=== PATIENT | male | born 1935 | race Caucasian/White ===

== ENCOUNTER 2018-06-05 09:47 | Day surgery (SDC) | payer OTHER ==
--- OUTSIDE RECORDS SUMMARY | 2018-06-05 09:54 | XMS REPORT | Summary of Care ---
:1935 Author Organization [facility] Outpatient Imaging [place] Address [address] [place] [address]- Encounter HQ Demario_micah(FIN) [id number] Date(s): 04/13/16 - 04/13/16 [facility] Outpatient Imaging [place] [address]- Discharge Disposition: Home or Self Care Attending Physician: Gilles Valdes MD Vital Signs No data available for this section Problem List Condition Effective Dates Status Health Status Informant AAA - Abdominal aortic 04/28/11 Active aneurysm(Confirmed) Abdominal aortic aneurysm1 02/24/06 Active Abdominal bloating2, 3 02/06/15 Active Acute bronchitis4, 5, 6 06/14/12 Resolved Acute conjunctivitis7, 8 06/14/14 Active Anticoagulant therapy9 08/08/13 Active Anxiety(Confirmed) Active Atrial tdqeeuuwcusv36, 11, 12, 13 03/27/12 Active CABG - Coronary artery bypass 04/28/11 Active graft(Confirmed) CAD - Coronary artery 04/28/11 Active disease(Confirmed) Cardiac catheterization stent x1 Active circumflex(Confirmed) Chest pain14, 15 10/07/14 Active Congestive heart , 17, 18, 09/21/12 Active 19 Wfkyxneju48, 21 12/05/14 Active Coronary obimdkcpmpuesjrq50, 23, 24, Active 25, 26, 27, 28 Disorder of eye29, 30, 31 06/14/14 Active Uvejper95, 33 10/07/14 Active Electrocardiogram 05/03/13 Active Elevated levels of transaminase & 02/06/15 Active lactic acid dtpiigqpupnsd97, 36 Explanation of expected sequence of Active events(Confirmed) Fever37, 38 03/01/13 Resolved Heart , 40, 41, 42 05/03/13 Active Heart valve oijjpxji07, 44, 45, 46 Active History of polyp of colon47, 48, 49 12/11/02 Active Hmkflpkonuyryc64, 51, 52 Active Zoliahcqazraac36 Active Long-term drug telyqfp51 Active Mitral valve acvufndrljydk37 10/29/13 Active Pain in yoveft61 06/14/12 Resolved Patient with cardiac rbmhoiaom14, 04/04/12 Active 58, 59 Peripheral vascular alspynp44 Active Repair of aortic valve(Confirmed) 04/28/11 Active Sick sinus jrhvzihl92 Active Upper respiratory ojdowmryw09 10/02/12 Resolved 1Data migrated from [employer] on 03/22/15.2Data migrated from [employer] on 03/22/15.3Data migrated from [employer] on 03/05/15.4Data migrated from [employer] on 02/15/15.5Data migrated from [employer] on 02/05/15.6Data migrated from [employer] on 12/31/14.7Data migrated from [employer] on .8Data migrated from [employer] on 12/31/14.9Data migrated from [employer] on 12/28/14.10Data migrated from [employer] on 03/22/15.11Data migrated from [employer] on 02/05/15.12Data migrated from [employer] on .13Data migrated from [employer] on 12/28/14.14Data migrated from [employer] on 02/05/15.15Data migrated from [employer] on 12/31/14.16Data migrated from [employer] on 03/22/15.17Data migrated from [employer] on 02/05.18Data migrated from [employer] on 12/31/14.19Data migrated from [employer] on 12/28/14.20Data migrated from [employer] on 02/05/15.21Data migrated from [employer] on 12/31/14.22Data migrated from [employer] on 03/22.23Data migrated from [employer] on 03/22/15.24Data migrated from [employer] on 02/05/15.25Data migrated from [employer] on 02/05/15.26Data migrated from [employer] on 12/31/14.27Data migrated from [employer] on .28Data migrated from [employer] on 12/28/14.29Data migrated from [employer] on 02/05/15.30Data migrated from [employer] on 12/31/14.31Data migrated from [employer] on 12/28/14.32Data migrated from [employer] on 02/05.33Data migrated from [employer] on 12/31/14.34Data migrated from [employer] on 12/28/14.35Data migrated from [employer] on 03/22/15.36Data migrated from [employer] on 03/05/15.37Data migrated from [employer] on 02/14.38Data migrated from [employer] on 02/14/15.39Data migrated from [employer] on 03/22/15.40Data migrated from [employer] on 02/05/15.41Data migrated from [employer] on 12/31/14.42Data migrated from [employer] on 12/28.43Data migrated from [employer] on 03/22/15.44Data migrated from [employer] on 02/05/15.45Data migrated from [employer] on 12/31/14.46Data migrated from [employer] on 12/28/14.47Data migrated from [employer] on .48Data migrated from [employer] on 02/05/15.49Data migrated from [employer] on 12/31/14.50Data migrated from [employer] on 02/05/15.51Data migrated from [employer] on 12/31/14.52Data migrated from [employer] on 12/28.53Data migrated from [employer] on 12/28/14.54Data migrated from [employer] on 12/28/14.55Data migrated from [employer] on 12/28/14.56Data migrated from [employer] on 02/15/15.57Data migrated from [employer] on 8/ 22/15.58Data migrated from [employer] on 02/05/15.59Data migrated from [employer] on 12/31/14.60Data migrated from [employer] on 12/28/14.61Data migrated from [employer] on 12/28/14.62Data migrated from [employer] on . Allergies, Adverse Reactions, Alerts Substance Reaction Severity Status penicillin Active penicillins1 Rash, NOS Active sulfa drugs2 Rash, NOS Active 1Data migrated from [employer] on 02/27/15. Originally documented as PENICILLIN. RASH AND BIG GOODS2Vkxz migrated from [employer] on 02/27/15. Originally documented as SULFA. rash Medications No data available for this section Results No data available for this section Immunizations Given and Recorded Vaccine Date Status Refusal Reason diphtheria/pertussis, acel/tetanus adult1 03/28/07 Given Hx influenza vaccine-unspecified2 04/21/12 Given influenza virus vaccine, inactivated 04/29/11 Given 1Result Comment: tdap. Migrated from OBS ; Data migrated from [employer] on 09/02/2015.2Result Comment: fluzone. Migrated from OBS ; Data migrated from [employer] on 09/02/2015. Procedures Procedure Date Related Diagnosis Body Site Cardiac pacemaker procedure 03/30/12 Stent placement 12/15/11 Aortic aneurysm repair Aortic valve replacement and aortoplasty CABG - Coronary artery bypass graft Catheterization of left heart Circumcision Repair of infrarenal abdominal aortic aneurysm with insertion of endovascular stent Social History Social History Type Response Substance Abuse Use: None. Exercise Exercise type: Walking.1, 2, 3 Employment/School Status: Retired. Alcohol Current, Type Beer. Frequency: 1-2 times per week. Smoking Status Former smoker; Type: Cigarettes; Started at age: 16.0; Stopped at age: 29; Exposure to Tobacco Smoke None; Cigarette Smoking Last 365 Days No; Reg Smoking Cessation Counseling No 1Rides lawnmower.2Has a garden and mowing.3Very active, currently building fences. Assessment and Plan No data available for this section
--- OUTSIDE RECORDS SUMMARY | 2018-06-05 09:54 | XMS REPORT | Summary of Care ---
:1935 Author Organization [facility] Outpatient Imaging [place] Address [address] [place] [address]- Encounter HQ Jacquelin(FIN) [phone] Date(s): 07/02/15 - 07/02/15 [facility] Outpatient Imaging [place] [address]- [facility] Discharge Disposition: Home Attending Physician: Gilles Valdes MD Vital Signs No data available for this section Problem List Condition Effective Dates Status Health Status Informant AAA - Abdominal aortic 04/28/11 Active aneurysm(Confirmed) Abdominal aortic aneurysm1 02/24/06 Active Abdominal bloating2, 3 02/06/15 Active Acute bronchitis4, 5, 6 06/14/12 Resolved Acute conjunctivitis7, 8 06/14/14 Active Anticoagulant therapy9 08/08/13 Active Anxiety(Confirmed) Active Atrial frputucvzxun18, 11, 12, 13 03/27/12 Active CABG - Coronary artery bypass 04/28/11 Active graft(Confirmed) CAD - Coronary artery 04/28/11 Active disease(Confirmed) Cardiac catheterization stent x1 Active circumflex(Confirmed) Chest pain14, 15 10/07/14 Active Congestive heart pbxzaqf70, 17, 18, 09/21/12 Active 19 Tftozcwvx37, 21 12/05/14 Active Coronary qcnfujijbdxeycfo19, 23, 24, Active 25, 26, 27, 28 Disorder of eye29, 30, 31 06/14/14 Active Vcrwtnj89, 33 10/07/14 Active Electrocardiogram lphqbvbi67 05/03/13 Active Elevated levels of transaminase & 02/06/15 Active lactic acid rhbkwwfewqgcz70, 36 Explanation of expected sequence of Active events(Confirmed) Fever37, 38 03/01/13 Resolved Heart bfjiad64, 40, 41, 42 05/03/13 Active Heart valve hxwplebi35, 44, 45, 46 Active History of polyp of colon47, 48, 49 12/11/02 Active Ggbmvukbczrote83, 51, 52 Active Nfzdjozkxvkakw41 Active Long-term drug hnjlkor68 Active Mitral valve ixjtkndmkspep68 10/29/13 Active Pain in 06/14/12 Resolved Patient with cardiac ovhnpksos36, 04/04/12 Active 58, 59 Peripheral vascular ixgzgmc08 Active Repair of aortic valve(Confirmed) 04/28/11 Active Sick sinus oerhwknx54 Active Upper respiratory riksricar28 10/02/12 Resolved 1Data migrated from [employer] [...] on 02/15/15.57Data migrated from [employer] on .58Data migrated from [employer] on 02/05/15.59Data migrated from [employer] on 12/31/14.60Data migrated from [employer] on 12/28/14.61Data migrated from [employer] on 12/28/14.62Data migrated from [employer] on . Allergies, Adverse Reactions, Alerts Substance Reaction Severity Status penicillin Active penicillins1 Active sulfa drugs2 Active 1Data migrated from [employer] on 02/27/15. Originally documented as PENICILLIN. RASH AND BIG SFFME7Lmja migrated from [employer] on 02/27/15. Originally documented as SULFA. rash Medications No data available for this section Results No data available for this section Immunizations Vaccine Date Refusal Reason influenza virus vaccine, inactivated 04/29/11 Procedures Procedure Date Related Diagnosis Body Site Aortic aneurysm repair Aortic valve replacement and aortoplasty CABG - Coronary artery bypass graft Cardiac pacemaker procedure Catheterization of left heart Circumcision Repair of infrarenal abdominal aortic aneurysm with insertion of endovascular stent Stent placement Social History Social History Type Response Substance Abuse Use: None. Alcohol Current, Type Beer. Frequency: Daily. Smoking Status Former smoker; Exposure to Tobacco Smoke None; Cigarette Smoking Last 365 Days No; Reg Smoking Cessation Counseling No Assessment and Plan No data available for this section
--- OUTSIDE RECORDS SUMMARY | 2018-06-05 09:54 | XMS REPORT | Summary of Care ---
:1935 Author Organization [facility] Address [address] [place] [address]- Encounter HQ Jacquelin(FIN) [id number] Date(s): 09/11/15 - 09/11/[address] [address]- [employer] Discharge Disposition: Home Attending Physician: Justin Lopez MD Referring Physician: Dillon Watson MD Vital Signs Most recent to oldest [Reference Range]: 1 Height 172.72 cm (09/11/15 11:39 AM) Blood Pressure [90-140/60-90 mmHg] 113/78 mmHg (09/11/15 11:39 AM) Respiratory Rate [14-20 BRMIN] 78 BRMIN *HI* (09/11/15 11:39 AM) Weight 75 kg (09/11/15 11:39 AM) Body Mass Index 25.14 m2 (09/11/15 11:39 AM) Problem List Condition Effective Dates Status Health Status Informant AAA - Abdominal aortic 04/28/11 Active aneurysm(Confirmed) Abdominal aortic aneurysm1 02/24/06 Active Abdominal bloating2, 3 02/06/15 Active Acute bronchitis4, 5, 6 06/14/12 Resolved Acute conjunctivitis7, 8 06/14/14 Active Anticoagulant therapy9 08/08/13 Active Anxiety(Confirmed) Active Atrial bydyjzjgdnoi72, 11, 12, 13 03/27/12 Active CABG - Coronary artery bypass 04/28/11 Active graft(Confirmed) CAD - Coronary artery 04/28/11 Active disease(Confirmed) Cardiac catheterization stent x1 Active circumflex(Confirmed) Chest pain14, 15 10/07/14 Active Congestive heart tcnizfs45, 17, 18, 09/21/12 Active 19 Xjjcflxad42, 21 12/05/14 Active Coronary zskuwtdgxiqvopqe36, 23, 24, Active 25, 26, 27, 28 Disorder of eye29, 30, 31 06/14/14 Active Qibxxid68, 33 10/07/14 Active Electrocardiogram naiqxtpa57 05/03/13 Active Elevated levels of transaminase & 02/06/15 Active lactic acid xzaomkqokryjt73, 36 Explanation of expected sequence of Active events(Confirmed) Fever37, 38 03/01/13 Resolved Heart otuodg79, 40, 41, 42 05/03/13 Active Heart valve xnhyybio31, 44, 45, 46 Active History of polyp of colon47, 48, 49 12/11/02 Active Pcqzghvahtixuv14, 51, 52 Active Aunnofzoclttwe28 Active Long-term drug tdmfuou65 Active Mitral valve cjhpkrjnxmxzu73 10/29/13 Active Pain in 06/14/12 Resolved Patient with cardiac slwdytkdg78, 04/04/12 Active 58, 59 Peripheral vascular euakqnx22 Active Repair of aortic valve(Confirmed) 04/28/11 Active Sick sinus kwzqukry72 Active Upper respiratory fnsreqfes44 10/02/12 Resolved 1Data migrated from [employer] [...] Originally documented as PENICILLIN. RASH AND BIG EFGCH0Eiak migrated from [employer] on 02/27/15. Originally documented as SULFA. rash Medications No Known Medications Results No data available for this section Immunizations Vaccine Date Refusal Reason diphtheria/pertussis, acel/tetanus adult1 03/28/07 Hx influenza vaccine-unspecified2 04/21/12 influenza virus vaccine, inactivated 04/29/11 1Result Comment: tdap. Migrated from OBS ; [...] Response Substance Abuse Use: None. Exercise Exercise frequency: Daily. Exercise type: Walking. Employment/School Status: Retired. Alcohol Current, Type Beer. Frequency: Daily. Smoking Status Former smoker; Exposure to Tobacco Smoke None; Cigarette Smoking Last 365 Days No; Reg Smoking Cessation Counseling No Assessment and Plan No data available for this section
--- OUTSIDE RECORDS SUMMARY | 2018-06-05 09:54 | XMS REPORT | Summary of Care ---
:1935 Author Organization [facility] Outpatient Imaging [place] Address [address] [place] [address]- Encounter HQ Demario_micah(FIN) [id number] Date(s): 05/13/16 - 05/13/16 [facility] Outpatient Imaging [place] [address]- Discharge Disposition: Home or Self Care Attending Physician: James Valdez MD Vital Signs No data available for this section Problem List Condition Effective Dates Status Health Status Informant AAA - Abdominal aortic 04/28/11 Active aneurysm(Confirmed) Abdominal aortic aneurysm1 02/24/06 Active Abdominal bloating2, 3 02/06/15 Active Acute bronchitis4, 5, 6 06/14/12 Resolved Acute conjunctivitis7, 8 06/14/14 Active Anticoagulant therapy9 08/08/13 Active Anxiety(Confirmed) Active Atrial ktnhysuhefdr86, 11, 12, 13 03/27/12 Active CABG - Coronary artery bypass 04/28/11 Active graft(Confirmed) CAD - Coronary artery 04/28/11 Active disease(Confirmed) Cardiac catheterization stent x1 Active circumflex(Confirmed) Chest pain14, 15 10/07/14 Active Congestive heart fihczsz52, 17, 18, 09/21/12 Active 19 Wougkgesm26, 21 12/05/14 Active Coronary nzpkugdshekcqycd29, 23, 24, Active 25, 26, 27, 28 Disorder of eye29, 30, 31 06/14/14 Active Lcecdeh28, 33 10/07/14 Active Electrocardiogram uymqfuxk27 05/03/13 Active Elevated levels of transaminase & 02/06/15 Active lactic acid , 36 Explanation of expected sequence of Active events(Confirmed) Fever37, 38 03/01/13 Resolved Heart ouwieg81, 40, 41, 42 05/03/13 Active Heart valve , 44, 45, 46 Active History of polyp of colon47, 48, 49 12/11/02 Active Kejjyukcuayibc78, 51, 52 Active Bgiuqbtzejmmbk82 Active Long-term drug grsqniv33 Active Mitral valve eqwugwuxtrxuo49 10/29/13 Active Pain in bhreyt45 06/14/12 Resolved Patient with cardiac regesjiuc58, 04/04/12 Active 58, 59 Peripheral vascular yxhaqar64 Active Repair of aortic valve(Confirmed) 04/28/11 Active Sick sinus alcejpnw40 Active Upper respiratory uvipsjdnw80 10/02/12 Resolved 1Data migrated from [employer] [...] Originally documented as PENICILLIN. RASH AND BIG [id number] migrated from [employer] on 02/27/15. Originally [...]
--- OUTSIDE RECORDS SUMMARY | 2018-06-05 09:54 | XMS REPORT | Continuity of Care Document ---
:1935 Author Organization Interface Problems Problem Status Onset Classification Date Comments Source Date Reported R94.5 - ABNORMAL Active [facility] RESULTS OF LIVER 016 [place] FUNC R [place] R93.8 - ABNORMAL Active [facility] FINDINGS ON 016 [facility] DIAGNOSTI I [place] PANCREATIC MASS Active [facility] CARE4 RECORDS 016 [facility] I71.4 - "ABDOMINAL Active [facility] AORTIC ANEURYSM, 015 [facility] WIT" Land Abdominal Active Problem 02/14/2018 Data bloating<sup>2, 015 migrated Medical 3</sup> from [employer], [facility] on 03/05/15. [facility] Elevated levels of Active Problem 02/14/2018 Data transaminase & 015 migrated Medical lactic acid from [employer], dehydrogenase<sup>35 [facility] , 36</sup> on 03/05/15. [facility] Contusion<sup>20, Active Problem 02/14/2018 Data 21</sup> 015 migrated Medical from [employer], [facility] on 12/31/14. [facility] Chest pain<sup>14, Active Problem 02/14/2018 Data 15</sup> 015 migrated Medical from [employer], [facility] on 12/31/14. [facility] Dyspnea<sup>32, Active Problem 02/14/2018 Data 33</sup> 015 migrated Medical from [employer], [facility] on 12/31/14. [facility] Acute Active Problem 02/14/2018 Data conjunctivitis<sup>7 014 migrated Medical , 8</sup> from [employer], [facility] on 12/31/14. [facility] Disorder of Active Problem 02/14/2018 Data eye<sup>29, 30, 014 migrated Medical 31</sup> from [employer], [facility] on 12/28/14. 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 [facility] Anticoagulant Active Problem 02/14/2018 Data therapy<sup>9</sup> 014 migrated Medical from [employer], [facility] on 12/28/14. [facility] Electrocardiogram Active Problem 02/14/2018 Data abnormal<sup>34</sup 013 migrated Medical > from [employer], [facility] on 12/28/14. [facility] Heart murmur<sup>39, Active Problem 02/14/2018 Data 40, 41, 42</sup> 013 migrated Medical from [employer], [facility] on 12/28/14. [facility] Fever<sup>37, Resolved Problem 02/14/2018 Data 38</sup> 013 migrated Medical from [employer], [facility] on 02/14/15. [facility] Upper respiratory Resolved Problem 02/14/2018 Data infection<sup>62</valverde 013 migrated Medical p> from [employer], [facility] on 02/15/15. [facility] Congestive heart Active Problem 02/14/2018 Data failure<sup>16, 17, 013 migrated Medical 18, 19</sup> from [employer], [facility] on 12/28/14. [facility] Acute Resolved Problem 02/14/2018 Data bronchitis<sup>4, 5, 012 migrated Medical 6</sup> from [employer], [facility] on 12/31/14. [facility] Pain in Resolved Problem 02/14/2018 Data throat<sup>56</sup> 012 migrated Medical from [employer], [facility] on 02/15/15. [place] Patient with cardiac Active Problem 02/14/2018 Data pacemaker<sup>57, 012 migrated Medical 58, 59</sup> from [employer], [facility] on 12/31/14. [place] Atrial Active Problem 02/14/2018 Data fibrillation<sup>10, 012 migrated Medical 11, 12, 13</sup> from [employer], [facility] on 12/28/14. 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 [facility] History of polyp of Active Problem 02/14/2018 Data colon<sup>47, 48, 003 migrated Medical 49</sup> from [employer], [facility] on 12/31/14. [facility] Anxiety Active Problem 02/14/2018 Medical Group, OPID [place] Cardiac Active Problem 02/14/2018 catheterization Medical stent x1 circumflex Group, OPID [place] Coronary Active Problem 02/14/2018 Data arteriosclerosis<sup migrated Medical >22, 23, 24, 25, 26, from [employer], 27, 28</sup> Centricity [facility] on 12/28/14. [place] Explanation of Active Problem 02/14/2018 expected sequence of Medical events Group, OPID [facility] Heart valve Active Problem 02/14/2018 Data disorder<sup>43, 44, migrated Medical 45, 46</sup> from Group, Centricity OPID on 12/28/14. [facility] Hyperlipidemia<sup>5 Active Problem 02/14/2018 Data 0, 51, 52</sup> migrated Medical from [facility], Centricity OP[facility] on 12/28/14. [facility] Hypothyroidism<sup>5 Active Problem 02/14/2018 Data 3</sup> migrated Medical from [facility], Centricity [facility] on 12/28/14. [facility] Long-term drug Active Problem 02/14/2018 Data therapy<sup>54</sup> migrated Medical from [facility], Centricity [facility] on 12/28/14. [facility] Peripheral vascular Active Problem 02/14/2018 Data disease<sup>60</sup> migrated Medical from [facility], Centricity [facility] on 12/28/14. [facility] Sick sinus Active Problem 02/14/2018 Data syndrome<sup>61</sup migrated Medical > from [facility], Centricity [facility] on 12/28/14. [facility] MEDICAL SERVICES NOT Active [facility] AVAILABLE IN [facility] Medications Medication Details Route Status Patient Ordering Order Source Instructions Provider Date warfarin 2 mg 2 mg=1 tab, No Longer oral tablet PO, Daily, Active 018 Medical TAKES 3 MG Group ON TUE-TUE-TUE AND 2 MG ON T-SUN., 0 Refill(s) Digoxin 0.125 MG 125 Active Oral Tablet microgram=1 018 Medical tab, PO, Group Daily, # 90 tab, 3 Refill(s), Pharmacy: [facility] Digoxin 0.125 MG See Active Oral Tablet Instruction 018 Medical s, TAKE ONE Group TABLET BY MOUTH ONCE DAILY, # 30 tab, 10 Refill(s), Pharmacy: [facility] Fluticasone 2 spray, Active propionate 0.05 NASAL, 018 Medical MG/ACTUAT Metered Daily, in Group Dose Nasal [place] each nostril, # 16 gm, 1 Refill(s), Pharmacy: [facility] spironolactone 25 See Inactive MH mg oral tablet Instruction 018 Medical s, TAKE ONE Group TABLET BY MOUTH ONCE DAILY, # 90 tab, 2 Refill(s), Pharmacy: [facility] Furosemide 40 MG 40 mg=1 Inactive Oral Tablet tab, PO, 018 Medical Daily, # 30 Group tab, 5 Refill(s), Pharmacy: [facility] pregabalin 200 MG 200 mg=1 Active Oral Capsule cap, PO, 018 Medical [Lyrica] Bedtime, # Group 30 cap, 1 Refill(s) Calcium Carbonate 1,000 mg, Active MH PO, Daily, 017 Medical 0 Refill(s) Group Vitamin D3 2000 2 TABS, PO, Active intl units oral Daily, 0 017 Medical tablet Refill(s) Group Allergies, Adverse Reactions, Alerts Substance Category Reaction Severity Reaction Status Date Comments Source type Reported sulfa Assertion Rash, NOS Drug Active Data drugs<sup>2< allergy 4 migrated Medical /sup> from [employer] on 02/27/15. Originally documented as SULFA. rash penicillins< Assertion Rash, NOS Drug Active Data sup>1</sup> allergy migrated Medical from [facility] on 02/27/15. Originally documented as PENICILLIN. RASH AND BIG KNOTS penicillin Assertion Drug Active allergy Medical Group Immunizations Immunization Date Site Status Last Comments Source Given Updated Hx influenza completed GE Result Medical vaccine-unspecif 2 Comment: Group ied<sup>1</sup> fluzone. Migrated from OBS ; Data migrated from [employer] on 09/02/2015. Hx influenza completed GE Result [facility] vaccine-unspecif 2 Comment: [place] ied<sup>2</sup> fluzone. Fatimah Migrated from [place] OBS ; Data Medical migrated from [facility] on 09/02/2015. influenza virus Right completed [facility] vaccine, 1 deltoid Group,MH inactivated OPID [place] diphtheria/pertu completed GE Result Medical ssis, 7 Comment: tdap. Group acel/tetanus Migrated from adult<sup>2</sup OBS ; Data > [facility] 09/02/2015. diphtheria/pertu completed GE Result [facility] ssis, 7 Comment: tdap. [place] acel/tetanus Migrated from [facility], adult<sup>1</sup OBS ; Data [place] > migrated from [facility] on 09/02/2015. Results Order Name Results Value Reference Date Interpretation Comments Source Range Ribs Ribs Patient Name: MARISOL MNCEAL. 12/19 - [facility] unilateral unilateral /2017 - [place] 3 views w 3 views w : 1935; Age: 82 years y/o; Male. PA chest DX PA chest DX MR: [id number]. Read by: Raj Aguayo MD Dictated Date/time: 12/19/17 13:47 Ordering Physician: Gilles Valdes MD. Electronically Signed by : Raj Aguayo MD 12/19/17 13:51 FINAL REPORT Left rib series with PA chest, 5 views. HISTORY: Fall with left chest/rib injury 2 weeks prior. COMPARISON: Chest x-ray 04/27/2016. FINDINGS: PA view of the chest and 4 views of left chest wall/ribs were obtained. Median sternotomy wires are intact. Dual-lead pacemaker noted overlying the left chest wall. Stable mild left basilar pleural parenchymal scarring noted. Minimal right basilar atelectasis versus pleural parenchymal scarring noted. No pneumothorax. Atherosclerotic calcification noted. Heart is top normal in size to minimally enlarged. No evidence of displaced fracture or destructive process involving the left ribs. IMPRESSION: 1. No acute disease in the chest. No displaced fracture or destructive process involving the left ribs. 2. Heart is top normal in size to minimally enlarged. SL: [id number] Liver US Liver US CLINICAL HISTORY: abd pain , nausea, abnormal liver functions 05/13 - [facility] - [place] AGE: 80 years [place] GENDER: Male Read by: Red Karimi MD Dictated Date/time: 05/13/16 10:51 Electronically Signed by: Red Karimi MD 05/13/16 11:55 FINAL REPORT TECHNIQUE: Grayscale and color Doppler imaging of the right upper quadrant was performed. Transverse and longitudinal images were submitted. COMPARISON: CT abdomen pelvis 04/13/2016 FINDINGS: Liver is normal in size and echotexture. Liver measures 10.5 cm in craniocaudal dimension. There is no evidence of focal hepatic lesion. No intrahepatic or extrahepatic biliary ductal dilatation is see n. Flow in the main portal vein is hepatopedal. There is normal triphasic flow in the hepatic veins. The hepatic artery is patent. The gallbladder is present. There is no evidence of cholelithiasis, gallbladder wall thickening or pericholecystic fluid. The CBD measures 6 millimeters in diameter. This is within normal limits for patient age. The right kidney measures 10.9 x 5.6 x 4.6 cm. Multiple simple and the medial consistencies in the right kidney which are not changed back to July 2015. The previously noted pancreatic body cystic lesion is not well-visualized on the current exam. Provided images of the proximal, mid and distal aorta show demonstrate postoperative changes from aortic endograft repair, partially visualized. Flow is seen within the aortic endograft. IMPRESSION: Patent hepatic vasculature. Unremarkable sonographic examination of the liver. Postoperative changes from endograft repair, partially visualized on this examination. The endograft appears patent. Chest 2 Chest 2 EXAM: Chest 2 views DX 04/27 - [facility] views DX views DX /2015 - [place] HISTORY: Dyspnea/Abd pain COMPARISON: 07/13/2006 Read by: Osorio Jordan MD Dictated Date/time: 04/27/16 15:13 Electronically Signed by: Osorio Jordan MD 04/27/16 15:14 FINAL REPORT IMPRESSION: There is significant enlargement of the cardiac silhouette with pacing leads present along with prior median sternotomy. The aorta is tortuous, probably ectatic with calcifications at the arch. Valvular repair also noted. There is no significant edema or effusion. The lungs are grossly clear. No pneumothorax. Mild discogenic degenerative changes are noted. Abdomen wo Abdomen wo CT abdomen without IV contrast, 04/13/201604/13 - [facility] IV contrast IV contrast /2015 - [place] [facility] [place] HISTORY: Pancreatic lesion. Compared to CT abdomen dated 07/02/2015. Read by: Jose A Lee MD Dictated Date/time: 04/13/16 14:53 Electronically Signed by: Jose A Lee MD 04/13/16 15:29 FINAL REPORT TECHNIQUE: 5 mm axial noncontrast images through the upper abdomen were obtained with sagittal and coronal reconstructions. Oral contrast was administered. DLP 464. FINDINGS: Images through the lung bases demonstrate minimal bibasilar atelectasis or mild fibrosis. Cardiomegaly with multichamber enlargement aortic valve prosthesis. Pacemaker electrodes. No evidence of liver mass or bile duct dilatation. No evidence of calcified gallstones. Mild gallbladder wall thickening. Normal spleen. Multiple bilateral benign renal cysts. No evidence of solid renal mass or hydronephrosis. Bifurcated aortic stent graft with no change in size of the excluded aneurysm sac. The mild dilatation of the ostium of the superior mesenteric artery is again noted. No evidence of aneurysm leakage. The previously described oval-shaped 17 x 11 mm cystic lesion in the body of the pancreas is again identified, unchanged since the prior exam. No other abnormality of the pancreas seen on noncontrast images. No dilated bowel loops. No evidence of ascites. Mild degenerative changes in the lumbar spine. No evidence of fracture or bone destruction. 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 Follow- up exam in one year recommended. If stable at that time, no follow-up required. Abdomen CTA Abdomen CTA STUDY: Abdomen CTA 07/02 [facility] [place] COMPARISON: CTA abdomen/pelvis dated 01/14/09 Read by: Zach Garrido MD Dictated Date/time: 07/02/15 12:20 Electronically Signed by: Zach Garrido MD 07/02/15 12:36 FINAL REPORT TECHNIQUE: Contiguous axial images were obtained from the lower thorax to the pubic symphysis prior to and after the administration of intravenous contrast. Coronal and sagittal MIP images as well as s urface rendered images were recreated and available for review. 3D reconstructions were also obtained. DLP: 459.57 mgy-cm. FINDINGS: VASCULAR: The patient is status post EVAR. There is mild hyperdense material noted within the aneurysm sac, which does not appear to be an endoleak but is chronic. The excluded aneurysm sac is decreased in size. 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 The bilateral single renal arteries are patent without significant stenoses. The celiac artery is patent. NON-VASCULAR: The heart size is enlarged, with coronary calcifications noted. The patient is status post aortic valve replacement, and ICD leads project in the right heart. The liver, gallbladder, spleen, adrenal glands, and kidneys are unremarkable. Bilateral simple cysts are noted in the kidneys. The pancreas demonstrates a 1.8 x 1 cm hypodensity within the mid body. The distal esophagus, stomach, small and large bowel history no significant abnormalities. There is no retroperitoneal lymphadenopathy noted. There is no intraperitoneal free air or free fluid seen. Bibasilar atelectasis is demonstrated. IMPRESSION: 1. Status post EVAR with reduction in size of the excluded aneurysm sac. No obvious endoleak. 2. 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 3. Interval enlargement of a mid-body pancreatic lesion (now measuring 1.8 x 1 cm). This should be further evaluated with an MRI pancreas. 4. Cardiomegaly. Vital Signs Vital Sign Value Date Comments Source Weight 72.727 01/23/2018 Medical Group Height 167.64 cm 01/23/2018 Medical Group BMI Calculated 25.88 01/23/2018 Medical Group Heart Rate 71 01/23/2018 Medical Group Systolic (mm Hg) 115 01/23/2018 Medical Group Diastolic (mm Hg) 71 01/23/2018 Medical Group Height 167.64 cm 12/19/2017 Medical Group Weight 75.455 12/19/2017 Medical Group BMI Calculated 26.85 12/19/2017 Medical Group Temperature Oral (F) 97.6 F 12/19/2017 Medical Group Heart Rate 70 12/19/2017 Medical Group Systolic (mm Hg) 103 12/19/2017 Medical Group Diastolic (mm Hg) 69 12/19/2017 Medical Group Weight 67.045 11/22/2017 Medical Group Height 167.64 cm 11/22/2017 Medical Group BMI Calculated 23.86 11/22/2017 Medical Group Heart Rate 76 11/22/2017 Medical Group Temperature Oral (F) 97.4 F 11/22/2017 Medical Group Systolic (mm Hg) 113 11/22/2017 Medical Group Diastolic (mm Hg) 74 11/22/2017 Medical Group Weight 74.773 09/12/2017 Medical Group BMI Calculated 27.43 09/12/2017 Medical Group Height 165.1 cm 09/12/2017 Medical Group Temperature Oral (F) 97.8 F 09/12/2017 Medical Group Heart Rate 65 09/12/2017 Medical Group Systolic (mm Hg) 110 09/12/2017 Medical Group Diastolic (mm Hg) 68 09/12/2017 Medical Group BMI Calculated 27.35 06/13/2017 Medical Group Weight 74.545 06/13/2017 Medical Group Height 165.1 cm 06/13/2017 Medical Group Temperature Oral (F) 97.8 F 06/13/2017 Medical Group Heart Rate 70 06/13/2017 Medical Group Systolic (mm Hg) 100 06/13/2017 Medical Group Diastolic (mm Hg) 62 06/13/2017 Medical [facility] Weight 75 09/11/2015 [facility] BMI Calculated 25.14 09/11/2015 [facility] Respitory Rate 78 09/11/2015 [facility] Height 172.72 cm 09/11/2015 [facility] Systolic (mm Hg) 113 09/11/2015 [facility] Diastolic (mm Hg) 78 09/11/2015 [facility] Encounters Location Location Encounter Encounter Reason Attending ADM DC Status Source Details Type Number For Provider Date Date Visit Outpatient [id number] DILLON 03/24 [facility] Outpt Diag [id number] Gilles 07/02 07/03 [facility] Outpatient Services Lucio /2014 [facility] [place] Outpatient [id number] GILLES 07/[address] [facility] LUCIO [place] Outpatient [id number] DILLON 08/28 [facility] Outpatient [id number] Dillon 09/11 09/12 [facility] /2015 [facility] Outpatient [id number] GILLES 09/[address] [facility] LUCIO [place] Out[place] [id number] GILLES 09/[address] [facility] LUCIO [place] Outpatient [id number] DILLON 09/[address] [facility] PAGE [place] Outpatient [id number] DENAE 12/03 [facility] [place] Outpatient [id number] GILLES 01/04 [facility] LUCIO [place] Outpatient [id number] ALICIA 02/02 Active [facility] COREY [place] Out[place] [id number] GILLES 04/08 [facility] [id number] Gilles 04/13 04/14 [facility] Out[facility] Lucio /2015 [facility] [place] Outpatient [id number] DENAE 04/27 [facility] WISSIN [place] Outpatient [id number] XRAY VISIT 04/27 Active [facility] [place] Outpatient [id number] DENAE 05/04 [facility] [id number] Denae 05/13 05/14 [facility] Outpatient Services Wiss[place] /2015 [facility] [place] Outpatient [id number] DENAE 05/18 [facility] WISSIN [place] Outpatient [id number] DENAE 06/16 Active [facility] WISSIN [place] Outpatient [id number] GILLES 08/12 Active [facility] LUCIO [place] Out[place] [id number] GILLES 08/12 Active [facility] LUCIO [place] Outpatient [id number] GILLES 11/04 Active [facility] LUCIO [place] Outpatient [id number] GILLES01/24 Active [facility] LUCIO [place] Outpatient [id number] GILLES 02/07 Active [facility] LUCIO [place] Outpatient [id number] GILLES 05/12 Active [facility] LUCIO [place] Outpatient [id number] GILLES 06/13 Active Memorial LUCIO Luis [facility] Outpatient [id number] Gilles 06/13 06/14 Cardiology Lucio /2016 [facility] [place] [facility] Phone [id number] 07/14 07/16 Cardiology Message /2016 [facility] Phone [id number] 08/12 08/14 Cardiology Message /2017 [facility] [place] [facility] Phone [id number] 08/31 09/02 Cardiology Message /2017 [facility] [place] [facility] Outpatient [id number] GILLES 09/12 Active [facility] LUCIO [place] [facility] Outpatient [id number] Gilles 09/12 09/13 Cardiology Lucio /2017 [facility] [place] [facility] Outpatient [id number] LANIE 11/22 Active [facility] DAREK [facility] Outpatient [id number] Lanie 11/22 11/23 Medicine Darek /2017 [facility] [place] [facility] Phone [id number] 11/29 12/01 Cardiology Message /2017 [facility] MG Phone [id number] 11/30 12/02 Internal Message /2017 Medical [facility] Outpatient [id number] GILLES 12/[address] [facility] LUCIO [place] Outpatient [id number] XRAY VISIT 12/19 [facility] Luis [facility] Outpatient [id number] Gilles 12/19 12/20 Cardiology Lucio /2017 [facility] Outpatient [id number] NURSE 12/19 12/20 Medicine VISIT /2017 [facility] [place] [facility] MG Phone [id number] 12/29 12/31 Internal Message /2017 Medical [facility] [place] Outpatient [id number] GILLES 01/[address] [facility] [place] [facility] Outpatient [id number] Gilles 01/23 01/24 Cardiology Lucio [facility] [place] [facility] Outpatient [id number] LAB VISIT 02/08 [facility] [place] MG Phone [id number] 02/10 02/12 Cardiology Message Medical [facility] Outpatient [id number] DENAE 03/[address] [facility] Luis Outpatient [id number] LAB VISIT 03/13 [facility] Outpatient [id number] GILLES 04/[address] [facility] Luis Outpatient [id number] LAB VISIT 04/27 [facility] [place] Outpatient [id number] LAB VISIT 05/22 [facility] [place] Outpatient [id number] LAB VISIT 06/20 [facility] [place] Outpatient [id number] GILLES 08/[address] [facility] Luis Procedures Procedure Code Date Perfomer Comments Source Cardiac pacemaker [id number] 03/30/2012 Medical procedure Group Cardiac pacemaker [id number] 03/30/2012 [facility] procedure [place] Stent placement [id number] 12/15/2011 Medical Group Stent placement [id number] 12/15/2011 [facility] [place] Aortic aneurysm [id number] Medical repair Group Aortic valve [id number] Medical replacement and Group aortoplasty CABG - Coronary [id number] Medical artery bypass graft Group Catheterization of [id number] Medical left heart Group Circumcision [id number] Medical Group Repair of infrarenal [id number] Medical abdominal aortic Group aneurysm with insertion of endovascular stent Aortic aneurysm [id number] [facility] repair [place] Aortic valve [id number] [facility] replacement and [place] aortoplasty CABG - Coronary [id number] [facility] artery bypass graft [place] Cardiac pacemaker [id number] [facility] procedure [place] Catheterization of [id number] [facility] left heart [place] Circumcision [id number] [facility] [place] Repair of infrarenal [id number] [facility] abdominal aortic [place] aneurysm with insertion of endovascular stent Stent placement [id number] [facility] [place] Aortic aneurysm [id number] [facility] repair [facility] Aortic valve [id number] [facility] replacement and Medical aortoplasty Center CABG - Coronary [id number] [facility] artery bypass graft [facility] Cardiac pacemaker [id number] [facility] Catheterization of [id number] [facility] left heart [facility] Circumcision [id number] [facility] Repair of infrarenal [id number] [facility] abdominal aortic Medical aneurysm with Center insertion of endovascular stent Stent placement [id number] [facility]
--- OUTSIDE RECORDS SUMMARY | 2018-06-05 09:55 | XMS REPORT | Summary of Care ---
:1935 Author Organization [facility] Cardiology [place] Address [address] [facility] [place] [address]- Encounter HQ Demario_micah(FIN) [id number] Date(s): 12/19/17 - 12/19/17 [facility] [address] [facility] [place] [phone] Discharge Disposition: Home or Self Care Attending Physician: Gilles Valdes MD Vital Signs Most recent to oldest [Reference Range]: 1 Height 167.64 cm (12/19/17 11:04 AM) Temperature Oral [96.4-99.1 DegF] 97.6 DegF (12/19/17 11:04 AM) Blood Pressure [90-140/60-90 mmHg] 103/69 mmHg (12/19/17 11:04 AM) Peripheral Pulse Rate [60-100 bpm] 70 bpm (12/19/17 11:04 AM) Weight 75.455 kg (12/19/17 11:04 AM) Body Mass Index 26.85 m2 (12/19/17 11:04 AM) Problem List Condition Effective Dates Status Health Status Informant AAA - Abdominal aortic 04/28/11 Active aneurysm(Confirmed) Abdominal aortic aneurysm1 02/24/06 Active Abdominal bloating2, 3 02/06/15 Active Acute bronchitis4, 5, 6 06/14/12 Resolved Acute conjunctivitis7, 8 06/14/14 Active Anticoagulant therapy9 08/08/13 Active Anxiety(Confirmed) Active Atrial fibrillation(Confirmed)10, 03/27/12 Active 11, 12, 13 CABG - Coronary artery bypass 04/28/11 Active graft(Confirmed) CAD - Coronary artery 04/28/11 Active disease(Confirmed) Cardiac catheterization stent x1 Active circumflex(Confirmed) Chest pain14, 15 10/07/14 Active Congestive 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)16, 17, 18, 19 Oltwxwiyv38, 21 12/05/14 Active Coronary ghgehhbeslqurovb76, 23, 24, Active 25, 26, 27, 28 Disorder of eye29, 30, 31 06/14/14 Active Dyspnea(Confirmed)32, 33 10/07/14 Active Electrocardiogram asyauydg56 05/03/13 Active Elevated levels of transaminase & 02/06/15 Active lactic acid ovmskduqcnjby79, 36 Explanation of expected sequence of Active events(Confirmed) Fever37, 38 03/01/13 Resolved Heart uyxten43, 40, 41, 42 05/03/13 Active Heart valve aprxeydy56, 44, 45, 46 Active History of polyp of colon47, 48, 49 12/11/02 Active Hyperlipidemia(Confirmed)50, 51, 52 Active Wdmdxytmmukupn49 Active Long-term drug cgajzwo92 Active Mitral valve yvszdzcqrdvlv22 10/29/13 Active Pain in afzvar44 06/14/12 Resolved Patient with cardiac dngdcvcew74, 04/04/12 Active 58, 59 Peripheral vascular yyisiap68 Active Repair of aortic valve(Confirmed) 04/28/11 Active Sick sinus Active Upper respiratory yeopcgnze10 10/02/12 Resolved 1Data migrated from [employer] [...] Adverse Reactions, Alerts Substance Reaction Severity Status penicillins1 Rash, NOS Active sulfa drugs2 Rash, NOS Active penicillin Active 1Data migrated from [employer] on 02/27/15. Originally documented as PENICILLIN. RASH AND BIG IJCVD6Zirf migrated from [employer] on 02/27/15. Originally documented as SULFA. rash Medications No Known Medications Results No data available for this section Immunizations Given and Recorded Vaccine Date Status Refusal Reason Hx influenza vaccine-unspecified1 04/21/12 Given influenza virus vaccine, inactivated 04/29/11 Given diphtheria/pertussis, acel/tetanus adult2 03/28/07 Given 1Result Comment: fluzone. Migrated from OBS ; Data migrated from [employer] on 09/02/2015.2Result Comment: tdap. Migrated from OBS ; Data migrated from [employer] on 09/02/2015. Procedures Procedure Date Related Diagnosis Body Site Status Cardiac pacemaker procedure 03/30/12 Completed Stent placement 12/15/11 Completed Aortic aneurysm repair Completed Aortic valve replacement and Completed aortoplasty CABG - Coronary artery bypass graft Completed Catheterization of left heart Completed Circumcision Completed Repair of infrarenal abdominal aortic Completed aneurysm with insertion of endovascular stent Social History Social History Type Response Substance Abuse Use: None. Exercise Exercise type: Walking.1, 2, 3 Employment/School Status: Retired. Alcohol Current, Type Beer. Frequency: 1-2 times per week. Smoking Status Former smoker; Type: Cigarettes; Exposure to Tobacco Smoke None ; Cigarette Smoking Last 365 Days No; Reg Smoking Cessation Counseling No; Started at age: 16.0; Stopped at age: 29; entered on: 12/19/17 1Rides lawnmower.2Has a garden and mowing.3Very active, currently building fences. Assessment and Plan No data available for this section
--- OUTSIDE RECORDS SUMMARY | 2018-06-05 09:55 | XMS REPORT | Summary of Care ---
:1935 Author Organization [facility] Cardiology [place] Address [address] [facility] [place] [address]- Encounter HQ Demario_micah(FIN) [id number] Date(s): 06/13/17 - 06/13/17 [facility] [address] [facility] [place] [address] [phone] Discharge Disposition: Home or Self Care Attending Physician: Gilles Valdes MD Vital Signs Most recent to oldest [Reference Range]: 1 Height 165.1 cm (06/13/17 2:01 PM) Temperature Oral [96.4-99.1 DegF] 97.8 DegF (06/13/17 2:01 PM) Blood Pressure [90-140/60-90 mmHg] 100/62 mmHg (06/13/17 2:01 PM) Peripheral Pulse Rate [60-100 bpm] 70 bpm (06/13/17 2:01 PM) Weight 74.545 kg (06/13/17 2:01 PM) Body Mass Index 27.35 m2 (06/13/17 2:01 PM) Problem List Condition Effective Dates Status Health [...] 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)16, 17, 18, 19 Xqifzkyqj40, 21 12/05/14 Active Coronary tybjqggblhikmsru20, 23, 24, Active 25, 26, 27, 28 Disorder of eye29, 30, 31 06/14/14 Active Dyspnea(Confirmed)32, 33 10/07/14 Active Electrocardiogram exwkbsha76 05/03/13 Active Elevated levels of transaminase & 02/06/15 Active lactic acid rhsejzquuawsq14, 36 Explanation of expected sequence of Active events(Confirmed) Fever37, 38 03/01/13 Resolved Heart jqvyzg71, 40, 41, 42 05/03/13 Active Heart valve ximbexwc94, 44, 45, 46 Active History of polyp of colon47, 48, 49 12/11/02 Active Hyperlipidemia(Confirmed)50, 51, 52 Active Bofmrungtnlwcp22 Active Long-term drug lbudrbr96 Active Mitral valve 10/29/13 Active Pain in 06/14/12 Resolved Patient with cardiac ucehplcxd72, 04/04/12 Active 58, 59 Peripheral vascular Active Repair of aortic valve(Confirmed) 04/28/11 Active Sick sinus vnaeveqd19 Active Upper respiratory fvkqbjehw26 10/02/12 Resolved 1Data migrated from [employer] [...] Originally documented as PENICILLIN. RASH AND BIG NLYAV0Jzgt migrated from [employer] on 02/27/15. Originally documented as SULFA. rash Medications calcium carbonate 1,000 mg, PO, Daily, 0 Refill(s) Start Date: 06/13/17 Status: OrderedVitamin D3 2000 intl units oral tablet 2 TABS, PO, Daily, 0 Refill(s) Start Date: 06/13/17 Status: Ordered Results No data available for this section [...] Related Diagnosis Body Site Cardiac pacemaker procedure 8/30/12 Stent placement 12/15/11 Aortic aneurysm repair Aortic [...] at age: 16.0; Stopped at age: 29; 1Rides lawnmower.2Has a garden and mowing.3Very active, currently building fences. Assessment and Plan No data available for this section
--- OUTSIDE RECORDS SUMMARY | 2018-06-05 09:55 | XMS REPORT | Summary of Care ---
:1935 Author Organization [facility] Cardiology [place] Address [address] [facility] [place] [address]- Encounter HQ Dignantr_micah(FIN) [id number] Date(s): 09/12/17 - 09/12/17 [facility] [address] [facility] [place] [address] [phone] Discharge Disposition: Home or Self Care Attending Physician: Gilles Valdes MD Vital Signs Most recent to oldest [Reference Range]: 1 Height 165.1 cm (09/12/17 11:16 AM) Temperature Oral [96.4-99.1 DegF] 97.8 DegF (09/12/17 11:16 AM) Blood Pressure [90-140/60-90 mmHg] 110/68 mmHg (09/12/17 11:16 AM) Peripheral Pulse Rate [60-100 bpm] 65 bpm (09/12/17 11:16 AM) Weight 74.773 kg (09/12/17 11:16 AM) Body Mass Index 27.43 m2 (09/12/17 11:16 AM) Problem List Condition Effective Dates Status [...] 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)16, 17, 18, 19 Sbdxysbav89, 21 12/05/14 Active Coronary jukxmfzztuewkxrh91, 23, 24, Active 25, 26, 27, 28 Disorder of eye29, 30, 31 06/14/14 Active Dyspnea(Confirmed)32, 33 10/07/14 Active Electrocardiogram 05/03/13 Active Elevated levels of transaminase & 02/06/15 Active lactic acid zjspabltxrdga43, 36 Explanation of expected sequence of Active events(Confirmed) Fever37, 38 03/01/13 Resolved Heart hfeayx60, 40, 41, 42 05/03/13 Active Heart valve kzmxcyei27, 44, 45, 46 Active History of polyp of colon47, 48, 49 12/11/02 Active Hyperlipidemia(Confirmed)50, 51, 52 Active Msliaagqsoxgxq91 Active Long-term drug entrccf75 Active Mitral valve hulrmcuyjchkq92 10/29/13 Active Pain in 06/14/12 Resolved Patient with cardiac aqoutcsby22, 04/04/12 Active 58, 59 Peripheral vascular mvyfxwg28 Active Repair of aortic valve(Confirmed) 04/28/11 Active Sick sinus Active Upper respiratory kjsaivijf57 10/02/12 Resolved 1Data migrated from [employer] [...] Originally documented as PENICILLIN. RASH AND BIG [id number] migrated from [employer] on 02/27/15. Originally documented as SULFA. rash Medications furosemide 40 mg oral tablet 40 mg=1 tab, PO, Daily, # 30 tab, 5 Refill(s), [facility] Start Date: 09/12/17 Stop Date: 09/12/17 Status: CompletedLyrica 200 mg oral capsule 200 mg=1 cap, PO, Bedtime, # 30 cap, 1 Refill(s) Start Date: 09/12/17 Status: Orderedspironolactone 25 mg oral tablet See Instructions, TAKE ONE TABLET BY MOUTH ONCE DAILY, # 90 tab, 2 Refill(s), Pharmacy: [facility] Start Date: 09/12/17 Stop Date: 09/12/17 Status: Completed Results No data available for this section Immunizations Given and Recorded Vaccine Date Status Refusal Reason Hx influenza vaccine-unspecified1 04/21/12 Given influenza virus vaccine, inactivated 04/29/11 Given diphtheria/pertussis, acel/tetanus adult2 03/28/07 Given 1Result Comment: fluzone. Migrated from OBS ; Data migrated from [employer] on 09/02/2015.2Result Comment: tdap. Migrated from OBS ; Data migrated from [employer] on 09/02/2015. Procedures Procedure Date Related Diagnosis [...] 16.0; Stopped at age: 29; entered on: 09/12/17 1Rides lawnmower.2Has a garden and mowing.3Very active, currently building fences. Assessment and Plan No data available for this section
--- OUTSIDE RECORDS SUMMARY | 2018-06-05 09:55 | XMS REPORT | Summary of Care ---
:1935 Author Organization [facility] Cardiology [facility] [address] [facility] [place] [address]- Encounter HQ Encntr_alitomasa(FIN) [id number] Date(s): 08/12/17 - 08/13/17 [facility] [address] [facility] [place] [phone] Vital Signs No data available for this [...] 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)16, 17, 18, 19 Bpsmyvswm56, 21 12/05/14 Active Coronary babaoqwiywafnwxx28, 23, 24, Active 25, 26, 27, 28 Disorder of eye29, 30, 31 06/14/14 Active Dyspnea(Confirmed)32, 33 10/07/14 Active Electrocardiogram bngriklp13 05/03/13 Active Elevated levels of transaminase & 02/06/15 Active lactic acid hzaluvydrdfga55, 36 Explanation of expected sequence of Active events(Confirmed) Fever37, 38 03/01/13 Resolved Heart fbqrgu23, 40, 41, 42 05/03/13 Active Heart valve ydvhcsja81, 44, 45, 46 Active History of polyp of colon47, 48, 49 12/11/02 Active Hyperlipidemia(Confirmed)50, 51, 52 Active Hyovnkfpqevtnn50 Active Long-term drug cgloxoz64 Active Mitral valve bqwjethazodqb95 10/29/13 Active Pain in lntzly64 06/14/12 Resolved Patient with cardiac xjujzeywj06, 04/04/12 Active 58, 59 Peripheral vascular nziyfmn11 Active Repair of aortic valve(Confirmed) 04/28/11 Active Sick sinus fjfhoeqn09 Active Upper respiratory zatlexdbc60 10/02/12 Resolved 1Data migrated from [employer] [...] Originally documented as PENICILLIN. RASH AND BIG [id number] migrated from [employer] on 02/27/15. Originally [...] 16.0; Stopped at age: 29; entered on: 06/13/17 1Rides lawnmower.2Has a garden and mowing.3Very active, currently building fences. Assessment and Plan No data available for this section
--- OUTSIDE RECORDS SUMMARY | 2018-06-05 09:55 | XMS REPORT | Summary of Care ---
:1935 Author Organization [facility] Cardiology [place] Address [address] [facility] [place] [address]- Encounter HQ Demario_micah(FIN) [id number] Date(s): 07/14/17 - 07/15/17 [facility] [address] [facility] [place] [phone] Vital Signs No data available for this [...] 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)16, 17, 18, 19 Gcwmfdgka39, 21 12/05/14 Active Coronary ihskcnwkqmdmefxd02, 23, 24, Active 25, 26, 27, 28 Disorder of eye29, 30, 31 06/14/14 Active Dyspnea(Confirmed)32, 33 10/07/14 Active Electrocardiogram dnmlmmuj78 05/03/13 Active Elevated levels of transaminase & 02/06/15 Active lactic acid qehznzjcbrxmw17, 36 Explanation of expected sequence of Active events(Confirmed) Fever37, 38 03/01/13 Resolved Heart anxbtw88, 40, 41, 42 05/03/13 Active Heart valve pxmtjeqz27, 44, 45, 46 Active History of polyp of colon47, 48, 49 12/11/02 Active Hyperlipidemia(Confirmed)50, 51, 52 Active Gnbnevxfsphsdo14 Active Long-term drug szeliyc42 Active Mitral valve mqrwihyjkbfov54 10/29/13 Active Pain in uxuggg48 06/14/12 Resolved Patient with cardiac ydewwcekq89, 04/04/12 Active 58, 59 Peripheral vascular lmsccay02 Active Repair of aortic valve(Confirmed) 04/28/11 Active Sick sinus ntfiwpco82 Active Upper respiratory jzdaimxun88 10/02/12 Resolved 1Data migrated from [employer] [...] Originally documented as PENICILLIN. RASH AND BIG WXLVS4Zqgl migrated from [employer] on 02/27/15. Originally [...]
--- OUTSIDE RECORDS SUMMARY | 2018-06-05 09:55 | XMS REPORT | Summary of Care ---
:1935 Author Organization [facility] [address] [facility] [place] [address]- Encounter HQ Jacquelin(FIN) [id number] Date(s): 12/19/17 - 12/19/17 [facility] [address] [facility] [place] [address] [phone] Discharge Disposition: Home or Self Care Attending Physician: VISIT, NURSE [facility] XRAY Vital Signs No data available for this [...] 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)16, 17, 18, 19 Vczjsoaoc52, 21 12/05/14 Active Coronary savkbaucskhqkbxs42, 23, 24, Active 25, 26, 27, 28 Disorder of eye29, 30, 31 06/14/14 Active Dyspnea(Confirmed)32, 33 10/07/14 Active Electrocardiogram letcscwx58 05/03/13 Active Elevated levels of transaminase & 02/06/15 Active lactic acid odqqlstxvhbrs87, 36 Explanation of expected sequence of Active events(Confirmed) Fever37, 38 03/01/13 Resolved Heart , 40, 41, 42 05/03/13 Active Heart valve ybqzpfwx10, 44, 45, 46 Active History of polyp of colon47, 48, 49 12/11/02 Active Hyperlipidemia(Confirmed)50, 51, 52 Active Cndxwgnsjstkcv14 Active Long-term drug advjoca33 Active Mitral valve blofwmekbkwij95 10/29/13 Active Pain in zkupkp06 06/14/12 Resolved Patient with cardiac filrphkav21, 04/04/12 Active 58, 59 Peripheral vascular Active Repair of aortic valve(Confirmed) 04/28/11 Active Sick sinus gzprhidq78 Active Upper respiratory gbmyldgiy11 10/02/12 Resolved 1Data migrated from [employer] [...] Originally documented as PENICILLIN. RASH AND BIG [id number] migrated from [employer] on 02/27/15. Originally [...]
--- OUTSIDE RECORDS SUMMARY | 2018-06-05 09:55 | XMS REPORT | Summary of Care ---
:1935 Author Organization [facility] Cardiology [place] Address [address] [facility] [place] [address]- Encounter HQ Encntr_alias(FIN) [id number] Date(s): 08/12/17 - 08/13/17 [facility] [address] [facility] [place] [address] [phone] Vital Signs No data available for this [...] 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)16, 17, 18, 19 Ghrmyfhan78, 21 12/05/14 Active Coronary rasjkebvzonkmiyj04, 23, 24, Active 25, 26, 27, 28 Disorder of eye29, 30, 31 06/14/14 Active Dyspnea(Confirmed)32, 33 10/07/14 Active Electrocardiogram drenckcg48 05/03/13 Active Elevated levels of transaminase & 02/06/15 Active lactic acid hsvqmixdxcazu33, 36 Explanation of expected sequence of Active events(Confirmed) Fever37, 38 03/01/13 Resolved Heart rqsqlu45, 40, 41, 42 05/03/13 Active Heart valve ybepfwev94, 44, 45, 46 Active History of polyp of colon47, 48, 49 12/11/02 Active Hyperlipidemia(Confirmed)50, 51, 52 Active Betltchcuzrbrf05 Active Long-term drug wodvyvk14 Active Mitral valve cdvpzzvjsiawb22 10/29/13 Active Pain in nvaqti72 06/14/12 Resolved Patient with cardiac bdzcuiejb88, 04/04/12 Active 58, 59 Peripheral vascular Active Repair of aortic valve(Confirmed) 04/28/11 Active Sick sinus owbpnrrd19 Active Upper respiratory oduffvpmo36 10/02/12 Resolved 1Data migrated from [employer] [...] Originally documented as PENICILLIN. RASH AND BIG [id number] migrated from [employer] on 02/27/15. Originally [...]
--- OUTSIDE RECORDS SUMMARY | 2018-06-05 09:56 | XMS REPORT | Summary of Care ---
:1935 Author Organization [facility] Address [address] [facility] [place] [address]- Encounter HQ Jacquelin(FIN) [id number] Date(s): 11/22/17 - 11/22/17 [facility] [address] [facility] [place] [address] [phone] Discharge Disposition: Home or Self Care Attending Physician: Soumya Oswald DO Vital Signs Most recent to oldest [Reference Range]: 1 Height 167.64 cm (11/22/17 9:01 AM) Temperature Oral [96.4-99.1 DegF] 97.4 DegF (11/22/17 9:01 AM) Blood Pressure [90-140/60-90 mmHg] 113/74 mmHg (11/22/17 9:01 AM) Peripheral Pulse Rate [60-100 bpm] 76 bpm (11/22/17 9:01 AM) Weight 67.045 kg (11/22/17 9:01 AM) Body Mass Index 23.86 m2 (11/22/17 9:01 AM) Problem List Condition Effective Dates Status [...] 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)16, 17, 18, 19 Fykmdzxyq15, 21 12/05/14 Active Coronary tnmdkyhhjybmkqcv93, 23, 24, Active 25, 26, 27, 28 Disorder of eye29, 30, 31 06/14/14 Active Dyspnea(Confirmed)32, 33 10/07/14 Active Electrocardiogram 05/03/13 Active Elevated levels of transaminase & 02/06/15 Active lactic acid ujxrsuxadzabk54, 36 Explanation of expected sequence of Active events(Confirmed) Fever37, 38 03/01/13 Resolved Heart mymvqy50, 40, 41, 42 05/03/13 Active Heart valve hhbuoult29, 44, 45, 46 Active History of polyp of colon47, 48, 49 12/11/02 Active Hyperlipidemia(Confirmed)50, 51, 52 Active Swxddverlrhgyb59 Active Long-term drug ivgtlra33 Active Mitral valve qdgzcittfamqb32 10/29/13 Active Pain in bvxsby41 06/14/12 Resolved Patient with cardiac lseuahitk82, 04/04/12 Active 58, 59 Peripheral vascular pnhdkiz67 Active Repair of aortic valve(Confirmed) 04/28/11 Active Sick sinus vnhxoyzc26 Active Upper respiratory bcwapziuh48 10/02/12 Resolved 1Data migrated from [employer] [...] Originally documented as PENICILLIN. RASH AND BIG LJHFK2Fcyu migrated from [employer] on 02/27/15. Originally documented as SULFA. rash Medications fluticasone nasal 0.05 mg/inh spray 2 spray, NASAL, Daily, in each nostril, # 16 gm, 1 Refill(s), Pharmacy: [facility] Start Date: 11/22/17 Status: Ordered Results No data available for [...] 16.0; Stopped at age: 29; entered on: 11/22/17 1Rides lawnmower.2Has a garden and mowing.3Very active, currently building fences. Assessment and Plan No data available for this section
--- OUTSIDE RECORDS SUMMARY | 2018-06-05 09:56 | XMS REPORT | Summary of Care ---
:1935 Author Organization [facility] Internal Medicine [place] Address [address] [place] [address]- Encounter HQ Encntr_alitomasa(FIN) [id number] Date(s): 11/30/17 - 12/01/17 [facility] Internal [address] [address]- [phone] Vital Signs No data available for this [...] 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)16, 17, 18, 19 Bbqrwlhps61, 21 12/05/14 Active Coronary hwelbppkgjdwhten62, 23, 24, Active 25, 26, 27, 28 Disorder of eye29, 30, 31 06/14/14 Active Dyspnea(Confirmed)32, 33 10/07/14 Active Electrocardiogram tycoulji74 05/03/13 Active Elevated levels of transaminase & 02/06/15 Active lactic acid xprnpryechmek04, 36 Explanation of expected sequence of Active events(Confirmed) Fever37, 38 03/01/13 Resolved Heart kuedsk34, 40, 41, 42 05/03/13 Active Heart valve pgpwaugd99, 44, 45, 46 Active History of polyp of colon47, 48, 49 12/11/02 Active Hyperlipidemia(Confirmed)50, 51, 52 Active Zkdqusaqpyactv65 Active Long-term drug Active Mitral valve sxyufmdwwkboo49 10/29/13 Active Pain in ajugnf27 06/14/12 Resolved Patient with cardiac yfbvawhju06, 04/04/12 Active 58, 59 Peripheral vascular jogedec36 Active Repair of aortic valve(Confirmed) 04/28/11 Active Sick sinus mmvysifa25 Active Upper respiratory teknuakez09 10/02/12 Resolved 1Data migrated from [employer] [...] Originally documented as PENICILLIN. RASH AND BIG GVNUB6Vqph migrated from [employer] on 02/27/15. Originally documented as SULFA. rash Medications digoxin 125 mcg (0.125 mg) oral tablet 125 microgram=1 tab, PO, Daily, # 90 tab, 3 Refill(s), Pharmacy: [facility] Start Date: 12/01/17 Status: Ordereddigoxin 125 mcg (0.125 mg) oral tablet See Instructions, TAKE ONE TABLET BY MOUTH ONCE DAILY, # 30 tab, 10 Refill(s), Pharmacy: [facility] Start Date: 11/30/17 Status: Ordered Results No data available for this section Immunizations Given and Recorded Vaccine Date Status Refusal Reason Hx influenza vaccine-unspecified1 04/21/12 Given influenza virus vaccine, inactivated 04/29/11 Given diphtheria/pertussis, acel/tetanus adult2 03/28/07 Given 1Result Comment: fluzone. Migrated from OBS ; Data migrated from [employer] on 09/02/2015.2Result Comment: tdap. Migrated from OBS ; Data migrated from [employer] on 09/02/2015. Procedures Procedure Date Related Diagnosis [...]
--- OUTSIDE RECORDS SUMMARY | 2018-06-05 09:56 | XMS REPORT | Summary of Care ---
:1935 Author Organization [facility] Cardiology [facility] [address] [facility] [place] [address]- Encounter HQ Dignantr_micah(FIN) [id number] Date(s): 08/31/17 - 09/01/17 [facility] [address] [facility] [place] [address] [phone] Vital Signs No data available for this [...] 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)16, 17, 18, 19 Vqqzuknxz00, 21 12/05/14 Active Coronary ijeywqujhqluzevt91, 23, 24, Active 25, 26, 27, 28 Disorder of eye29, 30, 31 06/14/14 Active Dyspnea(Confirmed)32, 33 10/07/14 Active Electrocardiogram eqxxxsdj33 05/03/13 Active Elevated levels of transaminase & 02/06/15 Active lactic acid amactjajxobcn24, 36 Explanation of expected sequence of Active events(Confirmed) Fever37, 38 03/01/13 Resolved Heart , 40, 41, 42 05/03/13 Active Heart valve osuqohze84, 44, 45, 46 Active History of polyp of colon47, 48, 49 12/11/02 Active Hyperlipidemia(Confirmed)50, 51, 52 Active Ickxgmgxtmeytb55 Active Long-term drug uhwirov08 Active Mitral valve hueiumurfqkmx84 10/29/13 Active Pain in 06/14/12 Resolved Patient with cardiac yrdcprmcw14, 04/04/12 Active 58, 59 Peripheral vascular mymxsia92 Active Repair of aortic valve(Confirmed) 04/28/11 Active Sick sinus buhddpjk01 Active Upper respiratory qjdtmpbqi57 10/02/12 Resolved 1Data migrated from [employer] [...] Originally documented as PENICILLIN. RASH AND BIG [id number] migrated from [employer] on 02/27/15. Originally [...]
--- OUTSIDE RECORDS SUMMARY | 2018-06-05 09:56 | XMS REPORT | Summary of Care ---
:1935 Author Organization [facility] Cardiology [place] Address [address] [facility] [place] [address]- Encounter HQ Dignantr_micah(FIN) [id number] Date(s): 11/29/17 - 11/30/17 [facility] [address] [facility] [place] [address] [phone] Vital Signs No data available for this [...] 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)16, 17, 18, 19 Azbgwupgi58, 21 12/05/14 Active Coronary mfsgxhbwzgwcrfky08, 23, 24, Active 25, 26, 27, 28 Disorder of eye29, 30, 31 06/14/14 Active Dyspnea(Confirmed)32, 33 10/07/14 Active Electrocardiogram adkwgjof14 05/03/13 Active Elevated levels of transaminase & 02/06/15 Active lactic acid upeiwcxwkomid62, 36 Explanation of expected sequence of Active events(Confirmed) Fever37, 38 03/01/13 Resolved Heart , 40, 41, 42 05/03/13 Active Heart valve irjkwmuq97, 44, 45, 46 Active History of polyp of colon47, 48, 49 12/11/02 Active Hyperlipidemia(Confirmed)50, 51, 52 Active Dnvxokwdfzuueh68 Active Long-term drug ckvqqcu69 Active Mitral valve uagifbvhngwfb34 10/29/13 Active Pain in cxyhjn38 06/14/12 Resolved Patient with cardiac ynotdnxtb94, 04/04/12 Active 58, 59 Peripheral vascular ugfjomd98 Active Repair of aortic valve(Confirmed) 04/28/11 Active Sick sinus nissvqkc01 Active Upper respiratory dtnisgvwo84 10/02/12 Resolved 1Data migrated from [employer] [...] Originally documented as PENICILLIN. RASH AND BIG [id number] migrated from [employer] on 02/27/15. Originally [...]
--- OUTSIDE RECORDS SUMMARY | 2018-06-05 09:56 | XMS REPORT | Summary of Care ---
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)16, 17, 18, 19 Gyoadjbwg33, 21 12/05/14 Active Coronary sktfabacsdqoanhp11, 23, 24, Active 25, 26, 27, 28 Disorder of eye29, 30, 31 06/14/14 Active Dyspnea(Confirmed)32, 33 10/07/14 Active Electrocardiogram jrbiojtr27 05/03/13 Active Elevated levels of transaminase & 02/06/15 Active lactic acid jaeqxjsvjfqxx69, 36 Explanation of expected sequence of Active events(Confirmed) Fever37, 38 03/01/13 Resolved Heart fgrekh87, 40, 41, 42 05/03/13 Active Heart valve xyipwaec04, 44, 45, 46 Active History of polyp of colon47, 48, 49 12/11/02 Active Hyperlipidemia(Confirmed)50, 51, 52 Active Vuxdilmzmdlqnx07 Active Long-term drug oyqhpoc43 Active Mitral valve bzyjufdmbtjvc57 10/29/13 Active Pain in hfpihq04 06/14/12 Resolved Patient with cardiac tofuypkag55, 04/04/12 Active 58, 59 Peripheral vascular kqimpgi32 Active 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 RASH AND BIG [id number] migrated from [employer] on 02/27/15. Originally [...]
--- OUTSIDE RECORDS SUMMARY | 2018-06-05 09:57 | XMS REPORT | Summary of Care ---
:1935 Author Organization [facility] Cardiology [place] Address [address] [facility] [place] [address]- Encounter HQ Yuer_micah(FIN) [id number] Date(s): 01/23/18 - 01/23/18 [facility] [address] [place] [address]- [phone] Discharge Disposition: Home or Self Care Attending Physician: Gilles Valdes MD Vital Signs Most recent to oldest [Reference Range]: 1 Height 167.64 cm (01/23/18 10:12 AM) Blood Pressure [90-140/60-90 mmHg] 115/71 mmHg (01/23/18 10:12 AM) Peripheral Pulse Rate [60-100 bpm] 71 bpm (01/23/18 10:12 AM) Weight 72.727 kg (01/23/18 10:12 AM) Body Mass Index 25.88 m2 (01/23/18 10:12 AM) Problem List Condition Effective Dates Status [...] 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)16, 17, 18, 19 Fammxnuwc62, 21 12/05/14 Active Coronary alopgswfoboqfsmq12, 23, 24, Active 25, 26, 27, 28 Disorder of eye29, 30, 31 06/14/14 Active Dyspnea(Confirmed)32, 33 10/07/14 Active Electrocardiogram amljeejw62 05/03/13 Active Elevated levels of transaminase & 02/06/15 Active lactic acid degclvlmduatb14, 36 Explanation of expected sequence of Active events(Confirmed) Fever37, 38 03/01/13 Resolved Heart ucaygp08, 40, 41, 42 05/03/13 Active Heart valve ojqtfepa23, 44, 45, 46 Active History of polyp of colon47, 48, 49 12/11/02 Active Hyperlipidemia(Confirmed)50, 51, 52 Active Pnyxscddqzkbhs11 Active Long-term drug ofjyqzg00 Active Mitral valve fgqclprgfspek45 10/29/13 Active Pain in gnqnow07 06/14/12 Resolved Patient with cardiac ahftwirzv32, 04/04/12 Active 58, 59 Peripheral vascular vabjiph79 Active 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 RASH AND BIG [id number] migrated from [employer] on 02/27/15. Originally documented as SULFA. rash Medications warfarin 2 mg oral tablet 2 mg=1 tab, PO, Daily, TAKES 3 MG ON TUE-TUE-TUE AND 2 MG ON JPN-YSIS-ZDI-TUE., 0 Refill(s) Start Date: 01/23/18 Stop Date: 01/24/18 Status: Completed Results No data available for [...] 16.0; Stopped at age: 29; entered on: 01/23/18 1Rides lawnmower.2Has a garden and mowing.3Very active, currently building fences. Assessment and Plan No data available for this section
--- OUTSIDE RECORDS SUMMARY | 2018-06-05 09:57 | XMS REPORT | Summary of Care ---
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)16, 17, 18, 19 Btxfvxjez28, 21 12/05/14 Active Coronary jqezvywwndmvbesz59, 23, 24, Active 25, 26, 27, 28 Disorder of eye29, 30, 31 06/14/14 Active Dyspnea(Confirmed)32, 33 10/07/14 Active Electrocardiogram kjboynrn67 05/03/13 Active Elevated levels of transaminase & 02/06/15 Active lactic acid vjibhnmrdscpa45, 36 Explanation of expected sequence of Active events(Confirmed) Fever37, 38 03/01/13 Resolved Heart pwywmj01, 40, 41, 42 05/03/13 Active Heart valve dihpejxt51, 44, 45, 46 Active History of polyp of colon47, 48, 49 12/11/02 Active Hyperlipidemia(Confirmed)50, 51, 52 Active Uvzzglrxooepfc99 Active Long-term drug rkycbqq85 Active Mitral valve xwjmkmvvuvgrp71 10/29/13 Active Pain in msgqaj74 06/14/12 Resolved Patient with cardiac , 04/04/12 Active 58, 59 Peripheral vascular viuhkby68 Active 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 RASH AND BIG [id number] migrated from [employer] on 02/27/15. Originally [...]
--- OUTSIDE RECORDS SUMMARY | 2018-06-05 09:57 | XMS REPORT | Summary of Care ---
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)16, 17, 18, 19 Jscxwewvk78, 21 12/05/14 Active Coronary , 23, 24, Active 25, 26, 27, 28 Disorder of eye29, 30, 31 06/14/14 Active Dyspnea(Confirmed)32, 33 10/07/14 Active Electrocardiogram zozgwoui99 05/03/13 Active Elevated levels of transaminase & 02/06/15 Active lactic acid kqnhheshvuyrb08, 36 Explanation of expected sequence of Active events(Confirmed) Fever37, 38 03/01/13 Resolved Heart idtrue36, 40, 41, 42 05/03/13 Active Heart valve , 44, 45, 46 Active History of polyp of colon47, 48, 49 12/11/02 Active Hyperlipidemia(Confirmed)50, 51, 52 Active Zwhitrfkwgtsng98 Active Long-term drug pcmfyrl62 Active Mitral valve yikoktowmkwas64 10/29/13 Active Pain in pbtakh52 06/14/12 Resolved Patient with cardiac ivfwgxflq64, 04/04/12 Active 58, 59 Peripheral vascular lyiwhty33 Active 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 RASH AND BIG [id number] migrated from [employer] on 02/27/15. Originally [...]
--- OUTSIDE RECORDS SUMMARY | 2018-06-05 09:57 | XMS REPORT | Summary of Care ---
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)16, 17, 18, 19 Lsakcijae70, 21 12/05/14 Active Coronary zxxjuhkqtnscswpn82, 23, 24, Active 25, 26, 27, 28 Disorder of eye29, 30, 31 06/14/14 Active Dyspnea(Confirmed)32, 33 10/07/14 Active Electrocardiogram wftuppbq80 05/03/13 Active Elevated levels of transaminase & 02/06/15 Active lactic acid pcvxaitizxdte68, 36 Explanation of expected sequence of Active events(Confirmed) Fever37, 38 03/01/13 Resolved Heart mpigjs11, 40, 41, 42 05/03/13 Active Heart valve hzazeoza61, 44, 45, 46 Active History of polyp of colon47, 48, 49 12/11/02 Active Hyperlipidemia(Confirmed)50, 51, 52 Active Frstfdgxwrglso04 Active Long-term drug Active Mitral valve kqorqgvhfnmob02 10/29/13 Active Pain in nqodwv89 06/14/12 Resolved Patient with cardiac jgjaltadl94, 04/04/12 Active 58, 59 Peripheral vascular yufwheo50 Active 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 RASH AND BIG [id number] migrated from [employer] on 02/27/15. Originally [...]
--- OUTSIDE RECORDS SUMMARY | 2018-06-05 09:57 | XMS REPORT | Summary of Care ---
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)16, 17, 18, 19 Cznieweje92, 21 12/05/14 Active Coronary jygjmvhajwmdzazd26, 23, 24, Active 25, 26, 27, 28 Disorder of eye29, 30, 31 06/14/14 Active Dyspnea(Confirmed)32, 33 10/07/14 Active Electrocardiogram legeqqvx09 05/03/13 Active Elevated levels of transaminase & 02/06/15 Active lactic acid gjugkflwwtlsy75, 36 Explanation of expected sequence of Active events(Confirmed) Fever37, 38 03/01/13 Resolved Heart zxafdx52, 40, 41, 42 05/03/13 Active Heart valve rbavhmhg29, 44, 45, 46 Active History of polyp of colon47, 48, 49 12/11/02 Active Hyperlipidemia(Confirmed)50, 51, 52 Active Loampfgviufivn04 Active Long-term drug iemurga44 Active Mitral valve tqwhshxyqgccm11 10/29/13 Active Pain in 06/14/12 Resolved Patient with cardiac pfoppudpg35, 04/04/12 Active 58, 59 Peripheral vascular qwryetq32 Active 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 RASH AND BIG [id number] migrated from [employer] on 02/27/15. Originally documented as SULFA. rash Medications furosemide 40 mg oral tablet 40 mg=1 tab, PO, Daily, # 30 tab, 5 Refill(s), Pharmacy: [place] [id number] Start Date: 09/12/17 Stop Date: 09/12/17 Status: CompletedLyrica 200 mg oral capsule 200 mg=1 cap, PO, Bedtime, # 30 cap, 1 Refill(s) Start Date: 09/12/17 Status: Orderedspironolactone 25 mg oral tablet See Instructions, TAKE ONE TABLET BY MOUTH ONCE DAILY, # 90 tab, 2 Refill(s), Pharmacy: [place] [id number] Start Date: 09/12/17 Stop Date: 09/12/17 Status: Completed Results No data available for this section Immunizations Given and Recorded Vaccine Date Status Refusal Reason Hx influenza vaccine-unspecified1 04/21/12 Given influenza virus vaccine, inactivated 04/29/11 Given diphtheria/pertussis, acel/tetanus adult2 03/28/07 Given 1Result Comment: fluzone. Migrated from OBS ; Data migrated from [employer] on 09/02/2015.2Result Comment: tdap. Migrated from OBS ; Data migrated from [employer] on 09/02/2015. Procedures Procedure Date Related Diagnosis [...]
[2018-06-05] MEDS ORDERED: TETRACAINE HCL 0.5% 2ML OPTH ONE (10:05)
[2018-06-05] MEDS ORDERED: BUPIVACAINE 0.25% PF 10 ML VIAL ONE (10:05)
[2018-06-05] MEDS ORDERED: NA CHLORIDE 0.9% 500 ML ONE (10:05)
[2018-06-05] MEDS ORDERED: LIDOCAINE 2% MPF 5 ML VIAL ONE (10:05)
[2018-06-05] MEDS ORDERED: LIDOCAINE HCL/PF 3.5% OPTH GEL ONE (10:06)
[2018-06-05 10:15] LABS: Protime INR 1.55
[2018-06-05] MEDS: PHENYLEPHRINE 2.5% OPTH 2 ML ONE ×3 (10:15→10:25)
[2018-06-05] MEDS: CYCLOPENTOLATE 1% OPTH 2 ML ONE ×3 (10:15→10:25)
[2018-06-05] MEDS ORDERED: MIDAZOLAM HCL 2 MG/2 ML INJ ONE (11:24)
[2018-06-05] MEDS ORDERED: FENTANYL CITR 100 MCG/2 ML ONE (11:24)
[2018-06-05] MEDS ORDERED: NS 0.9% VIAL 10 ML ONE (11:35)
[2018-06-05] MEDS ORDERED: EPINEPHRINE/PF 1 MG/ML AMP ONE (11:35)
[2018-06-05] MEDS ORDERED: DUOVISC 1 KIT OPTH ONE (11:36)
[2018-06-05] MEDS ORDERED: BALANCED SALT IRRIG PLAIN 500 ML BTL IRR ONE (11:36)
[2018-06-05] MEDS ORDERED: MOXIFLOXACIN HCL 10 DROPS/ML **OR USE OPTH ONE (11:36)
[2018-06-05] MEDS ORDERED: LIDOCAINE 1% MPF 2 ML AMPULE ONE (11:37)
--- NOTE | 2018-06-05 12:11 | P.BOP ---
Preoperative diagnosis: Nuclear sclerotic cataract OS Postoperative diagnosis: Same Primary procedure: Phacoemulsification with IOL OS Estimated blood loss: None Anesthesia: Local (Topical with anesthesia for cataract surgery) Complications: None Implants: ZCB00 +21.0 Transferred to: Other (Day surgery) Condition: Good
--- NOTE | 2018-06-05 22:39 | OP ---
Date of Procedure: 06/05/2018 Surgeon: Judith Grigsby MD Anesthesiologist: Cuca Méndez CRNA and Jose Buchanan M.D. Preoperative Diagnosis: Nuclear sclerotic cataract, left eye. Operation Performed: Phacoemulsification with intraocular lens implant, left eye. Anesthesia: Per Cataract Surgery. Complications: None. Description Of Procedure: In the operating room the patient was prepped and draped in the usual ster ile fashion for ophthalmic surgery. A lid speculum was placed in the left eye. Two paracentesis sit es were made superiorly and inferiorly in the limbal cornea. Viscoat was placed in the anterior lilliam hans and a crescent blade was used to make a corneal groove and tunnel, and a keratome was used to ent er the anterior chamber. Provisc was placed in the anterior chamber and a 360 degree capsulotomy was performed with a cystitome. The lens was hydrodissected with BSS and rotated freely. The lens was removed with a stop and chop technique. A 10.56 phaco CDE was used to remove the lens. Residual cor sarah was removed with the irrigation and aspiration. Provisc was placed in the capsular bag. A ZCB00 +21.0 lens was placed in the capsular bag without complications. Irrigation and aspiration was used to remove residual viscoelastic. The paracentesis sites were hydrated with BSS. The wound and para centesis sites were inspected and found to be watertight. Vigamox 0.07 cc was placed intracamerally at the end of the procedure. The eye was irrigated with balanced salt solution. The eye was patched with a soft cotton patch and Foster metal shield. The patient was returned to day surgery in good condition. Comments: Akten was placed in the eye in Day Surgery, then irrigated out of the eye with BSS in the OR. Preservative-free 1% lidocaine was placed in the anterior chamber prior to Viscoat. Discharge Instructions: Mr. [place] is discharged to home in good condition and is to follow up aleja Grigsby in the morning. DAVIN/DAVID Voice ID: [id number] Report ID: [id number]
== END 2018-06-05 12:45 | disposition home or self-care (01) ==
LOC: OR 09:47
PROVIDERS: ATTEND Ophthalmology Retina Specialist
PROC: 08RK3JZ Replacement of Left Lens with Synthetic Substitute, Percutaneous Approach (ICD-10-PCS; principal; 2018-06-05 10:45)
DX: H25.12 Age-related nuclear cataract, left eye (principal); H18.50 Unspecified hereditary corneal dystrophies; H35.30 Unspecified macular degeneration; E07.9 Disorder of thyroid, unspecified; Z88.0 Allergy status to penicillin; Z88.2 Allergy status to sulfonamides; Z95.0 Presence of cardiac pacemaker; Z95.5 Presence of coronary angioplasty implant and graft; Z95.2 Presence of prosthetic heart valve; Z79.01 Long term (current) use of anticoagulants; Z79.82 Long term (current) use of aspirin; Z82.49 Family history of ischemic heart disease and other diseases of the circulatory system
CPT/HCPCS: 36415; 66984; 85610; J0171; J2001; J2250; J3010

== ENCOUNTER 2018-08-07 07:08 | Day surgery (SDC) | payer OTHER ==
--- OUTSIDE RECORDS SUMMARY | 2018-08-07 07:14 | XMS REPORT | Continuity of Care Document ---
:1935 Author Organization Interface Problems Problem Status Onset Classification Date Comments Source Date Reported R94.5 - ABNORMAL Active [facility] RESULTS OF LIVER 016 [place] FUNC R [place] R93.8 - ABNORMAL Active [facility] FINDINGS ON 016 [place] DIAGNOSTI I [place] PANCREATIC MASS Active [facility] CARE4 RECORDS 016 [facility] I71.4 - "ABDOMINAL Active [facility] AORTIC ANEURYSM, 015 [place] WIT" [place] Abdominal Active Problem 02/14/2018 Data [facility] bloating<sup>2, 015 migrated [place] 3</sup> from [facility] on 03/05/15. [facility] Medical [facility] Elevated levels of Active Problem 02/14/2018 Data OP[facility] transaminase & 015 migrated [place] lactic acid from [facility] dehydrogenase<sup>35 [facility] , 36</sup> on 03/05/15. [facility] Contusion<sup>20, Active Problem 02/14/2018 Data OPID 21</sup> 015 migrated [place] from [facility] on 12/31/14. [facility] Chest pain<sup>14, Active Problem 02/14/2018 Data OPID 15</sup> 015 migrated [place] from [facility] on 12/31/14. [facility] Dyspnea<sup>32, Active Problem 02/14/2018 Data [facility] 33</sup> 015 migrated [place] from [facility] on 12/31/14. [facility] Acute Active Problem 02/14/2018 Data [facility] conjunctivitis<sup>7 014 migrated [place] , 8</sup> from [facility] on 12/31/14. [facility] Disorder of Active Problem 02/14/2018 Data [facility] eye<sup>29, 30, 014 migrated [place] 31</sup> from [facility] on 12/28/14. 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 [facility] Anticoagulant Active Problem 02/14/2018 Data [facility] therapy<sup>9</sup> 014 migrated [place] from [facility] on 12/28/14. [facility] Electrocardiogram Active Problem 02/14/2018 Data [facility] abnormal<sup>34</sup 013 migrated [place] > from [facility] on 12/28/14. [facility] Heart murmur<sup>39, Active Problem 02/14/2018 Data OP[facility] 40, 41, 42</sup> 013 migrated Sugar from [facility] on 12/28/14. [facility] Fever<sup>37, Resolved Problem 02/14/2018 Data OP[facility] 38</sup> 013 migrated [place] from [facility] on 02/14/15. [facility] Upper respiratory Resolved Problem 02/14/2018 Data [facility] infection<sup>62</valverde 013 migrated Sugar p> from [facility] on 02/15/15. [facility] Congestive heart Active Problem 02/14/2018 Data [facility] failure<sup>16, 17, 013 migrated [place] 18, 19</sup> from [facility] on 12/28/14. [facility] Acute Resolved Problem 02/14/2018 Data [facility] bronchitis<sup>4, 5, 012 migrated [place] 6</sup> from [facility] on 12/31/14. [facility] Pain in Resolved Problem 02/14/2018 Data [facility] throat<sup>56</sup> 012 migrated [place] from [facility] on 02/15/15. [facility] Patient with cardiac Active Problem 02/14/2018 Data [facility] pacemaker<sup>57, 012 migrated [place] 58, 59</sup> from [facility] on 12/31/14. [facility] Atrial Active Problem 02/14/2018 Data [facility] fibrillation<sup>10, 012 migrated [place] 11, 12, 13</sup> from [facility] on 12/28/14. 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 [facility] History of polyp of Active Problem 02/14/2018 Data [facility] colon<sup>47, 48, 003 migrated Sugar 49</sup> from [facility] on 12/31/14. [facility] Anxiety Active Problem 02/14/2018 OP[facility] [place],[facility] Cardiac Active Problem 02/14/2018 [facility] catheterization [place] stent x1 circumflex [facility] Coronary Active Problem 02/14/2018 Data OP[facility] arteriosclerosis<sup migrated [place] >22, 23, 24, 25, 26, from [facility], 27, 28</sup> [facility] on 12/28/14. [facility] Explanation of Active Problem 02/14/2018 [facility] expected sequence of [place] events [facility] Heart valve Active Problem 02/14/2018 Data OPID disorder<sup>43, 44, migrated [place] 45, 46</sup> from [facility] on 12/28/14. [facility] Hyperlipidemia<sup>5 Active Problem 02/14/2018 Data OPID 0, 51, 52</sup> migrated [place] from [facility] on 12/28/14. [facility] Hypothyroidism<sup>5 Active Problem 02/14/2018 Data OPID 3</sup> migrated [place] from [facility] on 12/28/14. [facility] Long-term drug Active Problem 02/14/2018 Data OP[facility] therapy<sup>54</sup> migrated [place] from [facility] on 12/28/14. [facility] Peripheral vascular Active Problem 02/14/2018 Data OPID disease<sup>60</sup> migrated [place] from [facility] on 12/28/14. [facility] Sick sinus Active Problem 02/14/2018 Data OPID syndrome<sup>61</sup migrated [place] > from [facility] on 12/28/14. [facility] MEDICAL SERVICES NOT Active [facility] AVAILABLE IN HOME Medical Center Medications Medication Details Route Status Patient Ordering Order Source Instructions Provider Date warfarin 2 mg 2 mg=1 tab, No Longer oral tablet PO, Daily, Active 018 Medical TAKES 3 MG Group ON TUE-TUE-TUE AND 2 MG ON T-SUN., 0 Refill(s) Digoxin 0.125 MG 125 Active Oral Tablet microgram=1 018 Medical tab, PO, Group Daily, # 90 tab, 3 Refill(s), Pharmacy: [facility] Digoxin 0.125 MG See Active Oral Tablet Instruction 018 Medical s, TAKE ONE Group TABLET BY MOUTH ONCE DAILY, # 30 tab, 10 Refill(s), Pharmacy: [facility] Fluticasone 2 spray, Active propionate 0.05 NASAL, 018 Medical MG/ACTUAT Metered Daily, in Group Dose Nasal Kegley each nostril, # 16 gm, 1 Refill(s), Pharmacy: [facility] spironolactone 25 See Inactive MH mg oral tablet Instruction 018 Medical s, TAKE ONE Group TABLET BY MOUTH ONCE DAILY, # 90 tab, 2 Refill(s), Pharmacy: [facility] Furosemide 40 MG 40 mg=1 Inactive Oral Tablet tab, PO, 018 Medical Daily, # 30 Group tab, 5 Refill(s), Pharmacy: [facility] pregabalin 200 MG 200 mg=1 Active MH Oral Capsule cap, PO, 018 Medical [Lyrica] Bedtime, # Group 30 cap, 1 Refill(s) Calcium Carbonate 1,000 mg, Active MH PO, Daily, 017 Medical 0 Refill(s) Group Vitamin D3 2000 2 TABS, PO, Active MH intl units oral Daily, 0 017 Medical tablet Refill(s) Group Allergies, Adverse Reactions, Alerts Substance Category Reaction Severity Reaction Status Date Comments Source type Reported sulfa Assertion Rash, NOS Drug Active Data [facility] drugs<sup>2< allergy 4 migrated [place] /sup> from [facility] on 02/27/15. Originally documented as SULFA. rash penicillin Assertion Drug Active allergy Medical Group penicillins< Assertion Rash, NOS Drug Active Data sup>1</sup> allergy migrated Medical from [facility] on 02/27/15. Originally documented as PENICILLIN. RASH AND BIG KNOTS Immunizations Immunization Date Site Status Last Comments Source Given Updated Hx influenza completed GE Result OP[facility] vaccine-unspecif 2 Comment: [place] ied<sup>2</sup> fluzone. Fatimah Migrated from [place] OBS ; Data Medical migrated [facility] 09/[facility]2015. Hx influenza completed GE Result Medical vaccine-unspecif 2 Comment: Group ied<sup>1</sup> fluzone. Migrated from OBS ; Data migrated from [employer] on 09/02/2015. influenza virus Right completed [facility] vaccine, 1 deltoid [place] inactivated [place],[facility], [facility] Group diphtheria/pertu completed GE Result OPID ssis, 7 Comment: tdap. Sugar acel/tetanus Migrated from [facility], adult<sup>1</sup OBS ; Data [place] > migrated from [facility] on 09/02/2015. diphtheria/pertu completed GE Result Medical ssis, 7 Comment: tdap. Group acel/tetanus Migrated from adult<sup>2</sup OBS ; Data > migrated from [facility] on 09/02/2015. Results Order Name Results Value Reference Date Interpretation Comments Source Range Ribs Ribs Patient Name: MARISOL MCNEAL. 12/19 - [facility] unilateral unilateral /2018 - [place] 3 views w 3 views w : 1935; Age: 82 years y/o; Male. PA chest DX PA chest DX MR: [id number]. Read by: Raj Aguayo MD Dictated Date/time: 12/19/17 13:47 Ordering Physician: Gillse Valdes MD. Electronically Signed by : Raj [...] normal in size to minimally enlarged. SL: [id number] Liver US Liver US CLINICAL HISTORY: abd pain , nausea, abnormal liver functions 05/13 - [facility] /2015 - [place] AGE: 80 years [place] GENDER: [...] EXAM: Chest 2 views DX 04/27 - [facility] views DX views DX /2015 - [place] HISTORY: Dyspnea/Abd pain COMPARISON: 07/13/2006 Read by: [...] CTA Abdomen CTA STUDY: Abdomen CTA 07/02 [facility] [place] COMPARISON: CTA abdomen/pelvis dated 01/14/09 Read by: [...] Medical [facility] Weight 75 09/11/2015 [facility] BMI Calculated 25.14 09/11/2015 [facility] Respitory Rate 78 09/11/2015 [facility] Height 172.72 cm 09/11/2015 [facility] Systolic (mm Hg) 113 09/11/2015 [facility] Diastolic (mm Hg) 78 09/11/2015 [facility] Encounters Location Location Encounter Encounter Reason Attending ADM DC Status Source Details Type Number For Provider Date Date Visit Outpatient [id number] DILLON 03/24 [facility] Outpt Diag [id number] Gilles 07/02 07/03 [facility] Outpatient Services Lucio /2014 [facility] [place] Outpatient [id number] GILLES 07/07 [facility] [place] Outpatient [id number] DILLON 08/[address] [facility] Outpatient [id number] [place] 09/11 09/12 [facility] /2015 [facility] Outpatient [id number] GILLES 09/16 [facility] LUCIO [place] Outpatient [id number] GILLES 09/16 [facility] LUCIO [place] Outpatient [id number] DILLON 09/22 [facility] [place] Outpatient [id number] DENAE 12/03 [facility] [place] Outpatient [id number] GILLES 01/04 Active [facility] LUCIO [place] Outpatient [id number] ALICIA 02/02 Active [facility] COREY [facility] Outpatient [id number] GILLES 04/08 Active [facility] Outpt Diag [id number] Gilles 04/13 04/14 [facility] Outpatient Services Lucio /2015 [facility] [place] Outpatient [id number] DENAE 04/27 Active [facility] WISSIN [facility] Outpatient [id number] XRAY VISIT 04/27 Active [facility] [place] Outpatient [id number] DENAE 05/04 Active [facility] Outpt Diag [id number] Denae 05/13 05/14 [facility] Outpatient Services [place] /2015 [facility] [place] Outpatient [id number] DENAE 05/18 Active [facility] WISS[facility] [place] Outpatient [id number] DENAE 06/16 Active [facility] WISSIN [place] Outpatient [id number] GILLES 08/12 Active [facility] LUCIO [place] Out[facility] [id number] GILLES 08/12 Active [facility] LUCIO [place] Outpatient [id number] GILLES 11/04 Active [facility] LUCIO [place] [facility] [id number] GILLES 01/24 Active [facility] LUCIO [place] Outpatient [id number] GILLES 02/07 Active [facility] LUCIO [place] [facility] [id number] GILLES 05/12 Active [facility] LUCIO [place] Outpatient [id number] GILLES 06/13 Active [facility] LUCIO [place] [facility] Outpatient [id number] Gilles 06/13 06/14 Cardiology Lucio /2016 [facility] Phone [id number] 07/14 07/16 Cardiology Message /2016 [facility] Phone [id number] 08/12 08/14 Cardiology Message /2017 [facility] Phone [id number] 08/31 09/02 Cardiology Message /2017 [facility] Outpatient [id number] GILLES 09/12 Active [facility] LUCIO [facility] Outpatient [id number] Gilles 09/12 09/13 Cardiology Lucio /2017 [facility] Outpatient [id number] LANIE 11/22 Active [facility] DAREK [facility] Family Outpatient [id number] Lanie 11/22 11/23 Medicine Darek /2017 [facility] Phone [id number] 11/29 12/01 Cardiology Message /2017 [facility] Phone [id number] 11/30 12/02 Internal Message /2017 Medical [facility] [place] Outpatient [id number] GILLES 12/19 [facility] LUCIO [place] Outpatient [id number] XRAY VISIT 12/19 [facility] Outpatient [id number] Gilles 12/19 12/20 Cardiology Lucio /2017 [facility] Family Outpatient [id number] NURSE 12/19 12/20 Medicine VISIT /2017 [facility] Phone [id number] 12/29 12/31 Internal Message /2017 Medical Medicine [facility] [place] Outpatient [id number] GILLES 01/23 [facility] [place] [facility] Outpatient [id number] Gilles 01/23 01/24 Cardiology Lucio [facility] Outpatient [id number] LAB VISIT 02/08 [facility] Phone [id number] 02/10 02/12 Cardiology Message /2017 [facility] Outpatient [id number] DENAE 03/01 [facility] Luis Outpatient [id number] LAB VISIT 03/13 Active [place] Outpatient [id number] GILLES 04/11 [facility] LUCIO [place] Outpatient [id number] LAB VISIT 04/27 Active [place] Outpatient [id number] LAB VISIT 05/22 [facility] Outpatient [id number] LAB VISIT 06/20 [facility] Outpatient [id number] LAB VISIT 07/17 Active Luis Outpatient [id number] GILLES 08/15 [facility] Luis Outpatient [id number] LAB VISIT 08/17 [facility] [place] Procedures Procedure Code Date Perfomer Comments Source Cardiac pacemaker [id number] 03/30/2012 [facility] procedure [place] Cardiac pacemaker [id number] 03/30/2012 Medical procedure Group Stent placement [id number] 12/15/2011 [facility] [place] Stent placement [id number] 12/15/2011 Medical Group Aortic aneurysm [id number] [facility] repair [place] Aortic valve [id number] [facility] replacement and [place] aortoplasty CABG - Coronary [id number] [facility] artery bypass graft [place] Catheterization of [id number] [facility] left heart [place] Circumcision [id number] [facility] [place] Repair of infrarenal [id number] [facility] abdominal aortic [place] aneurysm with insertion of endovascular stent Cardiac pacemaker [id number] [facility] procedure [place] Stent placement [id number] [facility] [place] Aortic aneurysm [id number] [facility] Aortic valve [id number] [facility] replacement and Medical aortoplasty Center CABG - Coronary [id number] [facility] artery bypass graft [facility] Center Cardiac pacemaker [id number] [facility] Center Catheterization of [id number] [facility] left heart Medical Center Circumcision [id number] [facility] Repair of infrarenal [id number] [facility] abdominal aortic Medical aneurysm with Center insertion of endovascular stent Stent placement [id number] [facility] Aortic aneurysm [id number] Medical repair Group Aortic valve [id number] Medical replacement and Group aortoplasty CABG - Coronary [id number] Medical artery bypass graft Group Catheterization of [id number] Medical left heart Group Circumcision [id number] Medical Group Repair of infrarenal [id number] Medical abdominal aortic Group aneurysm with insertion of endovascular stent
[2018-08-07 07:44] LABS: Protime INR 1.56
[2018-08-07] MEDS ORDERED: LIDOCAINE HCL/PF 3.5% OPTH GEL ONE (08:00)
[2018-08-07] MEDS ORDERED: TETRACAINE HCL 0.5% 2ML OPTH ONE (08:00)
[2018-08-07] MEDS ORDERED: BUPIVACAINE 0.25% PF 10 ML VIAL ONE (08:00)
[2018-08-07] MEDS ORDERED: LIDOCAINE 2% MPF 5 ML VIAL ONE (08:00)
[2018-08-07] MEDS ORDERED: NA CHLORIDE 0.9% 500 ML ONE (08:01)
[2018-08-07] MEDS: PHENYLEPHRINE 10% OPTH 5ML ONE ×3 (08:02→08:15)
[2018-08-07] MEDS: CYCLOPENTOLATE 1% OPTH 2 ML ONE ×3 (08:02→08:15)
[2018-08-07] MEDS ORDERED: EPINEPHRINE/PF 1 MG/ML AMP ONE (08:04)
[2018-08-07] MEDS ORDERED: NS 0.9% VIAL 10 ML ONE (08:04)
[2018-08-07] MEDS ORDERED: BALANCED SALT IRRIG PLAIN 500 ML BTL IRR ONE (08:05)
[2018-08-07] MEDS ORDERED: DUOVISC 1 KIT OPTH ONE (08:05)
[2018-08-07] MEDS ORDERED: LIDOCAINE 1% MPF 2 ML AMPULE ONE (08:06)
[2018-08-07] MEDS ORDERED: MOXIFLOXACIN HCL 10 DROPS/ML **OR USE OPTH ONE (08:07)
[2018-08-07] MEDS ORDERED: LIDOCAINE 1% MPF 5 ML VIAL ONE (09:14)
[2018-08-07] MEDS ORDERED: PROPOFOL 200 MG/20 ML VIAL IV ONE (09:14)
[2018-08-07] MEDS ORDERED: MIDAZOLAM HCL 2 MG/2 ML INJ ONE (09:22)
--- NOTE | 2018-08-07 09:49 | P.BOP ---
Preoperative diagnosis: Nuclear sclerotic and cortical cataract OD Postoperative diagnosis: Same Primary procedure: Phacoemulsification with IOL OD Estimated blood loss: None Anesthesia: Local (Topical with anesthesia for catarct surgery) Complications: None Implants: [id number] +21.0 Transferred to: Other (Day surgery) Condition: Good
--- NOTE | 2018-08-07 21:42 | OP ---
Date of Procedure: 08/07/2018 Surgeon: Judith Grigsby MD Anesthesiologist: [place] CRNA and Benja Posey M.D. Preoperative Diagnosis: Nuclear sclerotic cataract and cortical cataract, right eye. Operation Performed: Phacoemulsification with intraocular lens implant, right eye. Anesthesia: Per cataract surgery. Complications: Description Of Procedure: In the operating room the patient was prepped and draped in the usual ster ile fashion for ophthalmic surgery. A lid speculum was placed in the right eye. Two paracentesis si quan were made superiorly and inferiorly in the limbal cornea. Viscoat was placed in the anterior juan mber and a crescent blade was used to make a corneal groove and tunnel, and a keratome was used to en ter the anterior chamber. Provisc was placed in the anterior chamber and a 360 degree capsulotomy wa s performed with a cystitome. The lens was hydrodissected with BSS and rotated freely. The lens was removed with a stop and chop technique. 11.10 phaco CDE was used to remove the lens. Residual afua ex was removed with the irrigation and aspiration. Provisc was placed in the capsular bag. A ZCB00 +21.0 lens was placed in the capsular bag without complications. Irrigation and aspiration was used to remove residual viscoelastic. The paracentesis sites were hydrated with BSS. The wound and parac entesis sites were inspected and found to be watertight. Vigamox 0.07 cc was placed intracamerally a t the end of the procedure. The eye was irrigated with balanced salt solution. The eye was patched with a soft cotton patch and Foster metal shield. The patient was returned to day surgery in good condition. Comments: Akten was placed in the eye in day surgery and irrigated out of the eye with BSS in the OR . Preservative-free 1% lidocaine was placed in the anterior chamber prior to Viscoat. Discharge Instructions: The patient was discharged to home in good condition and is to follow up aleja Grigsby in the morning. DAVIN/DAVID Voice ID: [id number] Report ID: [id number]
== END 2018-08-07 10:21 | disposition home or self-care (01) ==
LOC: OR 07:08
PROVIDERS: ATTEND Ophthalmology Retina Specialist
PROC: 08RJ3JZ Replacement of Right Lens with Synthetic Substitute, Percutaneous Approach (ICD-10-PCS; principal; 2018-08-07 09:10)
DX: H25.11 Age-related nuclear cataract, right eye (principal); H25.011 Cortical age-related cataract, right eye; I25.10 Atherosclerotic heart disease of native coronary artery without angina pectoris; E07.9 Disorder of thyroid, unspecified; Z95.0 Presence of cardiac pacemaker; Z95.5 Presence of coronary angioplasty implant and graft; Z95.2 Presence of prosthetic heart valve; Z79.01 Long term (current) use of anticoagulants; Z88.0 Allergy status to penicillin; Z88.2 Allergy status to sulfonamides; Z82.49 Family history of ischemic heart disease and other diseases of the circulatory system
CPT/HCPCS: 36415 ×2; 66984; 84132; 85610; J0171; J2001; J2250; J2704